=== PATIENT | female | born 1950 | race Caucasian/White ===

== ENCOUNTER 2016-12-15 20:12 | Observation (INO) | payer MEDICARE, OTHER ==
[~2016-12-15] VITALS: Ht 162.6 cm; Wt 86.7 kg
[~2016-12-15 20:12] MED LIST: ASPI81 PO; CORE12.5 PO; DICY1TAB26 PO; FENO145T2 PO; IBUP100S PO; LORA-474 PO; MELA3TAB PO; MORP25IN2 INTRA1; NEXI40CA PO; NORV10TA PO; OXYC-103 PO; OXYM30TA4 PO; PRAV40TA2 PO; PROBCAP4 PO; PROC1TAB8 PO; SYNT112T PO; TRAZ100 PO; VALA500 PO; VITA5000 PO
[2016-12-15 20:14] VITALS: BP 169/81; PULSE 85; RESP 19; TEMP 98.2; O2SAT 99
[2016-12-15] MEDS ORDERED: ONDANSETRON HCL 4 MG/2 ML VIAL IV PUSH ONE (20:45)
[2016-12-15] MEDS ORDERED: NITROGLYCERIN 2% OINT 1 GM PACKET TOP ONE (20:45)
[2016-12-15] MEDS ORDERED: SODIUM CHLORIDE 0.9% FLUSH 10 ML FLUSH IVF PRN (20:45)
[2016-12-15] MEDS ORDERED: ASPIRIN 325 MG TAB PO ONE (20:45)
[2016-12-15] MEDS ORDERED: MORPHINE SULFATE 4 MG/ML INJ IV PUSH ONE (20:45)
[2016-12-15 20:49] VITALS: O2SAT 97
[2016-12-15 20:49] LABS: AUTOMATED NEUTROPHIL # 2.9 TH/MM3 (1.8-7.7); BASOPHIL % 0.7 % (0.0-2.0); EOSINOPHIL # 0.1 TH/MM3 (0-0.4); EOSINOPHIL % 1.9 % (0.0-4.0); HEMATOCRIT 36.8 % (35.0-46.0); HEMO FLAGS DIFF FINAL; LYMPH % 45.2 % (9.0-44.0); MEAN CELL VOLUME 92.4 FL (80.0-100.0); MEAN CORPUSCULAR HEMOGLOBIN 31.1 PG (27.0-34.0); MEAN CORPUSCULAR HGB CONC 33.7 % (32.0-36.0); MONO % 7.8 % (0.0-8.0); NEUT % 44.4 % (16.0-70.0); PLATELET COUNT 441 TH/MM3 (150-450); RED BLOOD COUNT 3.98 MIL/MM3 (4.00-5.30); RED CELL DISTRIBUTION WIDTH 13.1 % (11.6-17.2); WHITE BLOOD COUNT 6.6 TH/MM3 (4.0-11.0)
[2016-12-15 20:50] VITALS: BP 156/77; PULSE 81; RESP 18; O2SAT 97
[2016-12-15 21:05] VITALS: O2SAT 95
[2016-12-15 21:10] LABS: APTT (PATIENT) 25.9 SEC (24.3-30.1); PROTHROMBIN TIME - PATIENT 10.9 SEC (9.8-11.6)
--- NOTE | 2016-12-15 21:13 | RADRPT ---
EXAM DATE/TIME: 12/15/2016 20:51 [place] COMPARISON: No previous studies available for comparison. INDICATIONS : Chest pain that started today. MEDICAL HISTORY : Hypertension. SURGICAL HISTORY : None. ENCOUNTER: Initial ACUITY: 1 day PAIN SCORE: 5/10 LOCATION: Bilateral chest FINDINGS: A single view of the chest demonstrates the lungs to be symmetrically aerated without evidence of mas s, infiltrate or effusion. The cardiomediastinal contours are unremarkable. Osseous structures are intact. CONCLUSION: Normal examination for a patient of this age. Augusto Figueroa MD on December 15, 2016 at 21:12 Board Certified Radiologist. This report was verified electronically.
[2016-12-15 21:18] LABS: ANION GAP 7 MEQ/L (5-15); AST (GOT) 20 U/L (15-37); BLOOD UREA NITROGEN 14 MG/DL (7-18); CHLORIDE 104 MEQ/L (98-107); GLOMERULAR FILTRATION RATE 71 ML/MIN (>89); POTASSIUM 3.8 MEQ/L (3.5-5.1); SODIUM (NA) 139 MEQ/L (136-145)
[2016-12-15 21:22] LABS: ALKALINE PHOSPHATASE 58 U/L (45-117); ALT (GPT) 27 U/L (10-53); TOTAL BILIRUBIN ADULT 0.1 MG/DL (0.2-1.0)
[2016-12-15 21:23] LABS: CREATINE KINASE 80 U/L (26-192)
--- NOTE | 2016-12-15 21:57 | PD ---
HPI Chief Complaint: Chest Pain Time Seen by Provider: 20:19 Travel History International Travel<30 days: No Contact w/Intl Traveler<30days: No Traveled to known affect area: No History of Present Illness HPI 66-year-old female arrives to the ER complaining of palpitations. The onset occurred while watching TV. There was pain in the chest left jaw left upper extremity. At the time the palpitations started the severity was mild. She states the severity is mild in the ER now. The , Dr. Burrows, checked her radial pulse and observed an irregular rhythm. They therefore came here for evaluation. At the time of onset the patient had mild shortness of breath. Patient reports in 2006 cardiac catheterization revealed a 50% occlusion affecting unknown artery. They followed with Dr Calderon. She has hypertension and hyperlipidemia. There is no family history of coronary artery disease. The patient does not smoke. She reports she has been having palpitations nightly for months, which she has yet to disclose. There has been no recent change in medicine. She spent the day doing laundry and relaxing in a recliner. PFSH Past Medical History Hx Anticoagulant Therapy: Yes (81 MG ASA DAILY) Arthritis: No Asthma: No Autoimmune Disease: No Anxiety: Yes Depression: Yes Heart Rhythm Problems: No Cancer: Yes (BCC FOREHEAD) Cardiac Catheterization: Yes (01/24/07) Cardiovascular Problems: Yes (HTN ) High Cholesterol: Yes Chest Pain: Yes Congestive Heart Failure: No COPD: No Cerebrovascular Accident: No Coronary Artery Disease: Yes Diabetes: No Diminished Hearing: No Gastrointestinal Disorders: Yes GERD: Yes Glaucoma: No Headaches: Yes Hepatitis: Yes (HEP-B 1970) Hiatal Hernia: No Hypertension: Yes Implanted Vascular Access Dvce: Yes (MORPHINE PUMP FOR CHRONIC BACK PAIN) Kidney Stones: No Musculoskeletal: Yes Neurologic: Yes (neuropathy) Psychiatric: Yes Reproductive: No Respiratory: No Myocardial Infarction: No Radiation Therapy: No Renal Failure: No Seizures: No Sleep Apnea: No Thyroid Disease: Yes Triglycerides - High: Yes Ulcer: No Tetanus Vaccination: < 5 Years ?: Not Menopausal: Yes Tubal Ligation: Yes Past Surgical History Abdominal Surgery: Yes (cholecystectomy, APENDECTOMY) AICD: No Body Medical Devices: PAIN PUMP Cardiac Surgery: No Cholecystectomy: Yes Ear Surgery: No Endocrine Surgery: No Eye Surgery: No Genitourinary Surgery: Yes Gynecologic Surgery: Yes (L oopherectomy, HYSTERECTOMY, TUBAL LIGATION ) Hysterectomy: Yes Joint Replacement: No Neurologic Surgery: Yes Oral Surgery: Yes (TONSILS) Pacemaker: No Thoracic Surgery: Yes Tonsillectomy: Yes Other Surgery: Yes Social History Alcohol Use: No Tobacco Use: No Substance Use: No Allergies-Medications (Allergen,Severity, Reaction): Coded Allergies: Sulfa (Verified Allergy, Mild, hIVES, 12/15/16) *MDRO Multi-Drug Resistant Organism (Verified Allergy, Unknown, 12/15/16) C- diff 06/2013 Darvon (Verified Adverse Reaction, Mild, NAUSEA & VOMITING, 12/15/16) Talwin (Verified Adverse Reaction, Mild, HALLUCINATIONS, 12/15/16) Reported Meds & Prescriptions Reported Meds & Active Scripts Active Reported Opana Er (Crush Resistant (Oxymorphone Hcl) 30 Mg Tab 30 Mg PO Q12HR Probiotic Acidophilus (Acidophilus) Cap 1 Tab PO DAILY Motrin (Ibuprofen) 100 Mg/5 Ml Susp 200 Mg PO DAILY Pravastatin Sodium 40 Mg Tab 1 Tab PO DAILY Melatonin 3 Mg Tab 3 Tab PO HS Trazodone Hcl (Trazodone HCl) 100 Mg Tab 200 Mg PO HS Compazine 10 Mg Tab (Prochlorperazine Maleate) 10 Mg Tab 10 Mg PO DAILY PRN Vitamin D-3 (Cholecalciferol) 5,000 Unit Tab 5,000 Unit PO DAILY Fenofibrate 145 Mg Tab 134 Mg PO DAILY Bentyl (Dicyclomine HCl) 20 Mg Tab 20 Mg PO QID PRN Synthroid (Levothyroxine Sodium) 112 Mcg Tab 112 Mcg PO DAILY Morphine Sulfate 25 Mg/Ml Inj 25 Mg INTRA1 DAILY Norvasc (Amlodipine Besylate) 10 Mg Tab 10 Mg PO DAILY Coreg (Carvedilol) 12.5 Mg Tab 12.5 Mg PO BID OxyCONTIN ER (Oxycodone HCl) 10 Mg Tabcr 30 Mg PO QID Valtrex (Valacyclovir HCl) 500 Mg Tab 500 Mg PO BID Aspirin 81 Mg Tab 81 Mg PO DAILY Ativan (Lorazepam) 1 Mg Tab 1 Mg PO BIDPRN Nexium (Esomeprazole Magnesium) 40 Mg Cap 40 Mg PO DAILY Review of Systems Except as stated in HPI: all other systems reviewed are Neg General / Constitutional: No: Fever Cardiovascular: Positive: Chest Pain or Discomfort, Palpitations, Irregular Rhythm, No: Diaphoresis Respiratory: Positive: Shortness of Breath Physical Exam Narrative GENERAL: 66-year-old female pleasant no acute distress speaking full sentences SKIN: Warm and dry. HEAD: Atraumatic. Normocephalic. EYES: Pupils equal and round. No scleral icterus. No injection or drainage. ENT: No nasal bleeding or discharge. Mucous membranes pink and moist. NECK: Trachea midline. No JVD. CARDIOVASCULAR: Regular rate and rhythm. No murmur appreciated. Well-perfused. RESPIRATORY: No accessory muscle use. Clear to auscultation. Breath sounds equal bilaterally. GASTROINTESTINAL: Abdomen soft, non-tender, nondistended. Hepatic and splenic margins not palpable. MUSCULOSKELETAL: No obvious deformities. No clubbing. No cyanosis. No edema. NEUROLOGICAL: Awake and alert. No obvious cranial nerve deficits. Motor grossly within normal limits. Normal speech. PSYCHIATRIC: Pleasant. Appropriate mood and affect. Data Data Last Documented VS Vital Signs Date Time Temp Pulse Resp B/P Pulse Ox O2 Delivery O2 Flow Rate FiO2 12/15/16 21:05 98 Nasal Cannula 2 12/15/16 20:50 81 18 156/77 12/15/16 20:14 98.2 Vital signs reviewed Orders Electrocardiogram (12/15/16 ) Ckmb (Isoenzyme) Profile (12/15/16 20:31) Complete Blood Count With Diff (12/15/16 20:31) Comprehensive Metabolic Panel (12/15/16 20:31) Magnesium (Mg) (12/15/16 20:31) Prothrombin Time / Inr (Pt) (12/15/16 20:31) Act Partial Throm Time (Ptt) (12/15/16 20:31) Troponin I (12/15/16 20:31) Chest, Single Ap (12/15/16 20:31) Ecg Monitoring (12/15/16 20:31) Iv Access Insert/Monitor (12/15/16 20:31) Oximetry (12/15/16 20:31) Oxygen Administration (12/15/16 20:31) Aspirin (Aspirin) (12/15/16 20:45) Nitroglycerin 2% Oint (Nitroglycerin 2% (12/15/16 20:45) Sodium Chloride 0.9% Flush (Ns Flush) (12/15/16 20:45) Ondansetron Inj (Zofran Inj) (12/15/16 20:45) Morphine Inj (Morphine Inj) (12/15/16 20:45) Admit Order (Ed Use Only) (12/15/16 22:14) Labs Laboratory Tests Test 12/15/16 20:35 White Blood Count 6.6 TH/MM3 Red Blood Count 3.98 MIL/MM3 Hemoglobin 12.4 GM/DL Hematocrit 36.8 % Mean Corpuscular Volume 92.4 FL Mean Corpuscular Hemoglobin 31.1 PG Mean Corpuscular Hemoglobin 33.7 % Concent Red Cell Distribution Width 13.1 % Platelet Count 441 TH/MM3 Mean Platelet Volume 7.7 FL Neutrophils (%) (Auto) 44.4 % Lymphocytes (%) (Auto) 45.2 % Monocytes (%) (Auto) 7.8 % Eosinophils (%) (Auto) 1.9 % Basophils (%) (Auto) 0.7 % Neutrophils # (Auto) 2.9 TH/MM3 Lymphocytes # (Auto) 3.0 TH/MM3 Monocytes # (Auto) 0.5 TH/MM3 Eosinophils # (Auto) 0.1 TH/MM3 Basophils # (Auto) 0.0 TH/MM3 CBC Comment DIFF FINAL Differential Comment Prothrombin Time 10.9 SEC Prothromb Time International 1.0 RATIO Ratio Activated Partial 25.9 SEC Thromboplast Time Sodium Level 139 MEQ/L Potassium Level 3.8 MEQ/L Chloride Level 104 MEQ/L Carbon Dioxide Level 28.0 MEQ/L Anion Gap 7 MEQ/L Blood Urea Nitrogen 14 MG/DL Creatinine 0.81 MG/DL Estimat Glomerular Filtration 71 ML/MIN Rate Random Glucose 109 MG/DL Calcium Level 8.9 MG/DL Magnesium Level 2.0 MG/DL Total Bilirubin 0.1 MG/DL Aspartate Amino Transf 20 U/L (AST/SGOT) Alanine Aminotransferase 27 U/L (ALT/SGPT) Alkaline Phosphatase 58 U/L Total Creatine Kinase 80 U/L Troponin I LESS THAN 0.02 NG/ML Total Protein 7.0 GM/DL Albumin 3.6 GM/DL [facility] Medical Decision Making Medical Screen Exam Complete: Yes Emergency Medical Condition: Yes Medical Record Reviewed: Yes Differential Diagnosis NSTEMI, unstable angina, coronary vasospasm, PE, PTX, aortic dissection, pericarditis, myocarditis, endocarditis, PNA, esophageal disease, aneurysm, musculoskeletal etiologies, anxiety, cocaine/sympathomimetic abuse Narrative Course CBC & BMP Diagram 12/15/16 20:35 Troponin is less than 0.02 EKG reveals sinus rhythm at 95 bpm with normal axis and intervals LFTs are normal Last 24 hours Impressions Chest X-Ray 12/15/162030 Signed Impressions: Service Date/Time: Thursday, December 15, 2016 20:51 - CONCLUSION: Normal examination for a patient of this age. Augusto Figueroa MD Admission for serial enzymes and evaluation by Dr. Calderon will be arranged. Patient has received morphine, Zofran, nitroglycerin paste and aspirin Diagnosis Primary Impression: Chest pain Qualified Code: R07.9 - Chest pain, unspecified type Additional Impression: Arrhythmia Qualified Code: I49.9 - Cardiac arrhythmia, unspecified cardiac arrhythmia type Admitting Information Admitting Physician Requests: Observation De Sanchez MD Dec 15, 2016 21:57
[2016-12-15] MEDS ORDERED: SODIUM CHLOR 0.9% 1000 ML INJ 1,000 ML IV SCH (22:19)
[2016-12-15] MEDS ORDERED: ONDANSETRON HCL 4 MG/2 ML VIAL IVP PRN (22:30)
[2016-12-15] MEDS ORDERED: ACETAMINOPHEN/HYDROcodone 325 MG/5 MG TAB PO PRN (22:30)
[2016-12-15] MEDS ORDERED: MORPHINE SULFATE 4 MG/ML INJ IV PRN (22:30)
[2016-12-15] MEDS ORDERED: SODIUM CHLORIDE 0.9% FLUSH 10 ML FLUSH IV FLUSH PRN (22:30)
[2016-12-15] MEDS ORDERED: BISACODYL 10 MG SUPP PR PRN (22:30)
[2016-12-15] MEDS ORDERED: ACETAMINOPHEN 325 MG TAB PO PRN (22:30)
--- NOTE | 2016-12-15 22:30 | HHI.HP ---
HPI Service [facility] Primary Care Physician Non-Staff Admission Diagnosis Chest Pain, Palpitations Diagnoses: (1) Chest pain Diagnosis: Principal (2) Palpitations Diagnosis: Principal (3) Dehydration Diagnosis: Principal (4) HTN (hypertension) Diagnosis: Principal Travel History International Travel<30 Days: No Contact w/Intl Traveler <30 Da: No Traveled to Known Affected Are: No History of Present Illness This is a 66-year-old female with a PMH of Anxiety, Depression, Chronic Pain s/ p Morphine Pump, Hepatitis B and CAD who presented to the ER at the insistence of her , Dr. Burrows w/ Psychiatry, for further evaluation of complaints of chest pain and palpitations. Per pt, she has been having intermittent chest pain x2-3 months, however has not sought medical attention. Today, pt w/ acute onset of chest pain while sitting in recliner w/ radiation to left neck/jaw. Dr. Burrows states he took her pulse and was noted to be thready w/ occasional PVCs. S/p NTG w/ no significant response, s/p Morphine w / relief. Following w/ Dr. Calderon as outpatient, s/p Cardiac Cath 01/24/07 w/ 50 % LAD stenosis, s/p angio-seal and plan for medical management. No further intervention since that time. On arrival, BP 169/81, HR 85, O2 sat 99% on RA, Afebrile. CBC unremarkable. GFR 71. Troponin negative. EKG with no acute ischemia. CXR with no acute findings. Review of Systems Except as stated in HPI: all other systems reviewed are Neg ROS: 14 point review of systems otherwise negative. Past Family Social History Past Medical History PMH: Anxiety, Depression, Chronic Pain s/p Morphine Pump, Hepatitis B and CAD Past Surgical History PAST SURGICAL HISTORY: Cholecystectomy, Appendectomy, Morphine Pain Pump ( [employer]), Hysterectomy, Tonsillectomy Allergies: Coded Allergies: Sulfa (Verified Allergy, Mild, hIVES, 12/15/16) *MDRO Multi-Drug Resistant Organism (Verified Allergy, Unknown, 12/15/16) C- diff 06/2013 Ruth Ann (Verified Adverse Reaction, Mild, NAUSEA & VOMITING, 12/15/16) Elias (Verified Adverse Reaction, Mild, HALLUCINATIONS, 12/15/16) Family History PAST FAMILY HISTORY: Reviewed. No h/o DM or CAD Social History PAST SOCIAL HISTORY: Negative for alcohol, tobacco or drugs. 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 Physical Exam Vital Signs Vital Signs Date Time Temp Pulse Resp B/P Pulse Ox O2 Delivery O2 Flow Rate FiO2 12/15/16 21:05 98 Nasal Cannula 2 12/15/16 21:05 95 Room Air 12/15/16 20:50 81 18 156/77 97 Room Air 12/15/16 20:49 97 12/15/16 20:20 85 17 98 Room Air 12/15/16 20:14 98.2 85 19 169/81 99 Physical Exam PE: GENERAL: Extremely pleasant middle-aged white female in no acute distress. at bedside HEENT: PERRLA, EOMI. No scleral icterus or conjunctival pallor. No lid lag or facial droop. CARDIOVASCULAR: Regular rate and rhythm. No obvious murmurs to auscultation. No chest tenderness to palpation. RESPIRATORY: No obvious rhonchi or wheezing. Clear to auscultation. Breath sounds equal bilaterally. GASTROINTESTINAL: Abdomen soft, non-tender, nondistended. BS normal. MUSCULOSKELETAL: Extremities without clubbing, cyanosis, or edema. No obvious deformities. NEUROLOGICAL: Awake, alert and oriented x4. No focal neurologic deficits. Moving both upper and lower extremities spontaneously. Laboratory Laboratory Tests Test 12/15/16 20:35 White Blood Count 6.6 Red Blood Count 3.98 Hemoglobin 12.4 Hematocrit 36.8 Mean Corpuscular Volume 92.4 Mean Corpuscular Hemoglobin 31.1 Mean Corpuscular Hemoglobin 33.7 Concent Red Cell Distribution Width 13.1 Platelet Count 441 Mean Platelet Volume 7.7 Neutrophils (%) (Auto) 44.4 Lymphocytes (%) (Auto) 45.2 Monocytes (%) (Auto) 7.8 Eosinophils (%) (Auto) 1.9 Basophils (%) (Auto) 0.7 Neutrophils # (Auto) 2.9 Lymphocytes # (Auto) 3.0 Monocytes # (Auto) 0.5 Eosinophils # (Auto) 0.1 Basophils # (Auto) 0.0 CBC Comment DIFF FINAL Differential Comment Prothrombin Time 10.9 Prothromb Time International 1.0 Ratio Activated Partial 25.9 Thromboplast Time Sodium Level 139 Potassium Level 3.8 Chloride Level 104 Carbon Dioxide Level 28.0 Anion Gap 7 Blood Urea Nitrogen 14 Creatinine 0.81 Estimat Glomerular Filtration 71 Rate Random Glucose 109 Calcium Level 8.9 Magnesium Level 2.0 Total Bilirubin 0.1 Aspartate Amino Transf 20 (AST/SGOT) Alanine Aminotransferase 27 (ALT/SGPT) Alkaline Phosphatase 58 Total Creatine Kinase 80 Troponin I LESS THAN 0.02 Total Protein 7.0 Albumin 3.6 Result Diagram: 12/15/16203412/15/162034 Assessment and Plan Problem List: (1) Chest pain ICD Code: R07.9 Status: Acute (2) Palpitations ICD Code: R00.2 Status: Acute (3) Dehydration ICD Code: E86.0 Status: Acute (4) HTN (hypertension) ICD Code: I10 Status: Acute Assessment and Plan A/P: 1. Chest Pain: Atypical. Intermittent chest pain x2-3 months, now w/ radiation to jaw/neck, minimal relief w/ NTG. Initial trop negative, EKG w/ no acute ischemia. Admit for Observation, place on telemetry, check serial cardiac enzymes, ASA, Statin, B-Brian. Following w/ Dr. Calderon as outpatient , h/o Cardiac Cath 2007 w/ 50% LAD stenosis, s/p angio-seal and medical management. NTG/Morphine as needed. 2. Palpitations: Telemetry. K+ and Mg normal, will repeat labs in am. Check Echo, check TSH. Cardiology Consult for further eval. 3. Dehydration: GFR 71, BUN/Creatinine normal, IVF for hydration, repeat labs in am. 4. HTN: BP 150-160's while in ER, resume home medications, monitor BP. 5. DVT Prophylaxis: SCD/Teds. 6. Social work for d/c planning as needed. 7. Case discussed w/ ER physician at length. Problem Qualifiers (1) Chest pain: Qualified Code: R07.9 - Chest pain, unspecified type Alexandra Guerra MD Dec 15, 2016 22:30
[2016-12-15] MEDS: PRAVASTATIN SOD 40 MG TAB PO SCH (23:21)
[2016-12-15 23:41] VITALS: BP 150/70; PULSE 79; RESP 18; TEMP 97.8; O2SAT 98
[2016-12-16] VITALS: PULSE 83
[2016-12-16] MEDS: MORPHINE SULFATE 4 MG/ML INJ IV PRN ×3 (03:00→15:59)
[2016-12-16 07:51] VITALS: BP 154/88; PULSE 88; RESP 18; O2SAT 95
[2016-12-16 08:00] VITALS: PULSE 72
[2016-12-16] MEDS: ASPIRIN EC 81 MG TABEC PO SCH (08:03)
[2016-12-16] MEDS: CARVEDILOL 12.5 MG TAB PO SCH ×2 (08:04→21:37)
--- NOTE | 2016-12-16 08:13 | HHI.PR ---
Subjective Remarks Follow up for chest pain and palpitations. The patient reports just minimal chest pain overnight, now went away this morning. Chest pain located at left anterior chest with radiation into the neck and left shoulder, associated with palpitations and some nausea but no SOB or diaphoresis. She feels much better today. No other medical complaints at this time. She is asking to go home today. Awaiting cardiology evaluation. Objective Vitals Vital Signs Date Time Temp Pulse Resp B/P Pulse Ox O2 Delivery O2 Flow Rate FiO2 12/16/16 07:51 88 18 154/88 95 12/16/16 00:00 83 12/15/16 23:41 97.8 79 18 150/70 98 12/15/16 21:05 98 Nasal Cannula 2 12/15/16 21:05 95 Room Air 12/15/16 20:50 81 18 156/77 97 Room Air 12/15/16 20:49 97 12/15/16 20:20 85 17 98 Room Air 12/15/16 20:14 98.2 85 19 169/81 99 Result Diagram: 12/15/16203412/15/162034 Imaging Last Impressions Chest X-Ray 12/15/162030 Signed Impressions: Service Date/Time: Thursday, December 15, 2016 20:51 - CONCLUSION: Normal examination for a patient of this age. Augusto Figueroa MD Objective Remarks GENERAL: Well-nourished, well-developed female patient in [facility]. SKIN: Warm and dry. No rash. HEAD: Normocephalic. Atraumatic. EYES: Pupils equal and round. No scleral icterus. No injection or drainage. ENT: No nasal bleeding or discharge. Mucous membranes pink and moist. NECK: Supple. Trachea midline. CARDIOVASCULAR: Regular rate and rhythm. S1, S2 noted. No murmur appreciated. RESPIRATORY: No accessory muscle use. Clear to auscultation. Breath sounds equal bilaterally. GASTROINTESTINAL: Abdomen soft, non-tender, nondistended. Normoactive bowel sounds x4. MUSCULOSKELETAL: No obvious deformities. Extremities without clubbing, cyanosis , or edema. NEUROLOGICAL: Awake and alert. No obvious cranial nerve deficits. Motor grossly within normal limits. 5/5 muscle strength in bilateral upper and lower extremities. Normal speech. PSYCHIATRIC: Appropriate mood and affect; insight and judgment normal. Medications and IVs Current Medications Medications (Trade) Dose Ordered Sig/Heydi Route Start Time Stop Time Status Last Admin (NS 1000 ml Inj) 1,000 ml @ 100 mls/hr Q10H IV 12/15/16 22:19 12/15/16 23:21 (NS Flush) 2 ml UNSCH PRN IV FLUSH 12/15/16 22:30 (NS Flush) 2 ml BID IV FLUSH 12/16/16 09:00 (Zofran Inj) 4 mg Q6H PRN IVP 12/15/16 22:30 (Dulcolax Supp) 10 mg DAILY PRN UT 12/15/16 22:30 (Tylenol) 650 mg Q6H PRN PO 12/15/16 22:30 (Ecotrin Ec) 81 mg DAILY PO 12/16/16 09:00 12/16/16 08:03 (Coreg) 12.5 mg BID PO 12/16/16 09:00 12/16/16 08:04 (Norvasc) 10 mg DAILY PO 12/16/16 09:00 12/16/16 08:04 (Pravachol) 40 mg DAILY PO 12/16/16 09:00 12/15/16 23:21 (Opana Er) 30 mg Q12HR PO 12/16/16 09:00 (OxyCONTIN CR) 30 mg Q4H PO 12/16/16 09:00 (Morphine Inj) 4 mg Q3H PRN IV 12/16/16 01:30 12/16/16 08:05 (Pneumovax-23 Inj) 25 mcg ONCE ONCE IM 12/17/16 10:00 12/17/16 10:01 (Flu (Quadrivalent) Vaccine Inj) 0.5 ml ONCE ONCE IM 12/17/16 10:00 12/17/16 10:01 Urinary Catheter: No Vascular Central Line Catheter: No A/P Problem List: (1) Chest pain ICD Code: R07.9 Status: Acute (2) Palpitations ICD Code: R00.2 Status: Acute (3) Dehydration ICD Code: E86.0 Status: Acute (4) HTN (hypertension) ICD Code: I10 Status: Acute Assessment and Plan 66-year-old female with a PMH of Anxiety, Depression, Chronic Pain s/p Morphine Pump, Hepatitis B and CAD who presented to the ER at the insistence of her , Dr. Burrows w/ Psychiatry, for further evaluation of complaints of chest pain and palpitations. Following w/ Dr. Caldreon as outpatient, s/p Cardiac Cath 01/24/07 w/ 50% LAD stenosis, s/p angio-seal and plan for medical management. Chest Pain: Atypical. Intermittent chest pain x2-3 months, now w/ radiation to jaw/neck, minimal relief w/ NTG. ACS ruled out with negative serial cardiac enzymes x3 and EKG w/ no acute ischemia. Monitor on telemetry, no events recorded. Continue ASA, Statin, B-Brian. Consult patient's caponizer Dr. Calderon. NTG/Morphine as needed. Currently chest pain free. Palpitations: No events seen on telemetry, continue to monitor. K+ and Mg normal, will repeat labs in am. Check Echo. TSH wnl. Cardiology Consult for further eval. Dehydration: GFR 71, BUN/Creatinine normal, IVF for hydration, repeat labs with mild improvement. HTN: BP 150-160's while in ER, resume home medications, monitor BP. DVT Prophylaxis: SCD/Teds. Written by Noelle Sy, acting as scribe for Dr. George on 12/16/16 at 09:08 All or portions of this note were transcribed by scribe Noelle Sy. I, Dr. Katalina George personally performed the history, physical exam, and medical decision making; and confirmed the accuracy of the information in the transcribed note. Authenticated by Dr. Katalina George on 12/16/16 at 09:08 Problem Qualifiers (1) Chest pain: Qualified Code: R07.9 - Chest pain, unspecified type oNelle Sy PA-C Dec 16, 2016 08:13 Katalina George MD Dec 16, 2016 14:41
[2016-12-16 08:58] LABS: BASOPHIL # 0.1 TH/MM3 (0-0.2); BASOPHIL % 0.9 % (0.0-2.0); EOSINOPHIL # 0.1 TH/MM3 (0-0.4); EOSINOPHIL % 2.3 % (0.0-4.0); HEMATOCRIT 35.7 % (35.0-46.0); HEMO FLAGS DIFF FINAL; LYMPH % 40.7 % (9.0-44.0); LYMPHOCYTE # 2.6 TH/MM3 (1.0-4.8); MEAN CELL VOLUME 92.6 FL (80.0-100.0); MEAN CORPUSCULAR HEMOGLOBIN 30.7 PG (27.0-34.0); MEAN CORPUSCULAR HGB CONC 33.1 % (32.0-36.0); MONO % 8.9 % (0.0-8.0); NEUT % 47.2 % (16.0-70.0); PLATELET COUNT 377 TH/MM3 (150-450); RED BLOOD COUNT 3.86 MIL/MM3 (4.00-5.30); RED CELL DISTRIBUTION WIDTH 13.1 % (11.6-17.2); WHITE BLOOD COUNT 6.3 TH/MM3 (4.0-11.0)
[2016-12-16] MEDS ORDERED: oxyCODONE HCL 10 MG CONTROLLED RELEASE TAB PO SCH (09:00)
[2016-12-16] MEDS: SODIUM CHLORIDE 0.9% FLUSH 10 ML FLUSH IV FLUSH SCH (09:00)
[2016-12-16 09:39] LABS: ALKALINE PHOSPHATASE 57 U/L (45-117); ALT (GPT) 25 U/L (10-53); ANION GAP 8 MEQ/L (5-15); AST (GOT) 24 U/L (15-37); BICARBONATE 25.4 MEQ/L (21.0-32.0); BLOOD UREA NITROGEN 12 MG/DL (7-18); CHLORIDE 103 MEQ/L (98-107); GLOMERULAR FILTRATION RATE 84 ML/MIN (>89); HDL CHOLESTEROL 63.1 MG/DL (40.0-60.0); SODIUM (NA) 136 MEQ/L (136-145); TOTAL BILIRUBIN ADULT 0.3 MG/DL (0.2-1.0)
[2016-12-16 09:40] LABS: LDL CHOLESTEROL 44 MG/DL (0-99)
[2016-12-16] MEDS: oxyCODONE HCL 10 MG CONTROLLED RELEASE TAB PO SCH ×4 (10:02→21:37)
[2016-12-16] MEDS: OXYMORPHONE 10 MG E.R. TAB PO SCH ×2 (10:03→21:36)
[2016-12-16 14:33] LABS: HEMOGLOBIN A1b 0.7 %; HEMOGLOBIN Ao 86.5 %; HEMOGLOBIN F 1.2 %; HEMOGLOBIN LA1C 1.8 %; HEMOGLOBIN P3 3.4 %
--- NOTE | 2016-12-16 15:01 | EKG ---
Date Performed: 12/15/2016 Time Performed: 20:16:10 PTAGE: 66 years EKG: Sinus rhythm ST changes have resolved from the prior tracing NORMAL ECG PREVIOUS TRACING : 06/24/2012 15.59 DOCTOR: Amarjit Valadez Interpretating Date/Time 12/16/2016 14:59:43
[2016-12-16] MEDS ORDERED: HYDROmorphone HCL PF 1 MG/ML VIAL IV PUSH ONE (16:45)
[2016-12-16 17:28] LABS: BLOOD, URINE NEG (NEG); GLUCOSE,URINE NEG (NEG); KETONE, URINE NEG (NEG); NITRITE,URINE NEG (NEG); PH, URINE 7.5 (5.0-8.5); URINE COLOR COLORLESS (YELLW/STRAW)
[2016-12-16 17:30] LABS: COMMENT (UR) CULT NOT INDICATED; CULTURE IF INDICATED CULT NOT INDICATED
[2016-12-16 17:35] VITALS: BP 136/85; PULSE 78; RESP 18; TEMP 97.6; O2SAT 95
--- NOTE | 2016-12-16 17:49 | MB ---
cc: LAURA CALDERON M.D., OTAKAR MD DATE OF CONSULTATION: 12/16/2016. HISTORY OF PRESENT ILLNESS: Ms. Burrows is a 66-year-old white female who was admitted with intermittent chest pain radiating into the left neck and jaw associated with palpitations. Her , Dr. Burrows, brought her to the emergency room. She still has occasional episodes of chest discomfort and mild palpitations. She has a history of coronary artery disease with 50% left anterior descending stenosis on cardiac catheterization in 2006. PAST MEDICAL HISTORY: Her past medical history is positive for: 1. Anxiety. 2. Depression. 3. Chronic back pain. Five back surgeries. 4. Morphine pump. 5. Hepatitis B. 6. Coronary artery disease as above. 7. History of cholecystectomy. 8. Appendectomy. 9. Hysterectomy. 10. Tonsillectomy. MEDICATIONS: Her medications include: 1. Aspirin. 2. Carvedilol 12.5 milligrams twice a day. 3. Amlodipine 10 milligrams a day. 4. Pravastatin 40 milligrams a day. 5. Oxymorphone. 6. Oxycodone. ALLERGIES: 1. SULFA. 2. DARVON. 3. TALWIN. SOCIAL HISTORY: The patient does not smoke. She does not drink alcohol. 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 FAMILY HISTORY: Family history is negative for heart disease. REVIEW OF SYSTEMS: The review of systems is otherwise negative. PHYSICAL EXAMINATION: VITAL SIGNS: Blood pressure is 154/88, pulse 72 and regular. HEAD, EYES, EARS, NOSE, THROAT: Negative. NECK: 2+ carotid upstrokes, no bruits. LUNGS: Clear. HEART: Regular with no murmurs, rubs or gallops. ABDOMEN: Abdomen soft. No bruits. EXTREMITIES: With trace edema. 2+ distal pulses. NEUROLOGIC: Grossly nonfocal. EKGS: EKG was reviewed and showed normal sinus rhythm with normal axis and intervals. LABS: Hemoglobin 11.8. Potassium 4.0. Creatinine 0.7. Troponin negative x3. AST and ALT normal. LDL 44. HDL 63. DIAGNOSIS: 1. Angina. 2. Coronary artery disease. 3. Palpitations. 4. Hypertension. 5. Dehydration. 6. Chronic back pain. 7. Anxiety and depression. DISPOSITION: 1. Ms. Burrows will be monitored on telemetry. 2. We will continue her current medical program including aspirin, statin and beta arlene. 3. She has been ruled out for myocardial infarction by enzymes. 4. Her telemetry has shown no significant arrhythmias. 5. We will continue to titrate her blood pressure medications. 6. Dr. Calderon, her primary police liaison officer, will see her tomorrow morning. The plan was discussed with the patient and her , Dr. Burrows. MD WYATT Anderson/MARILOU /4:42 PM /5:40 PM MTDD
--- NOTE | 2016-12-16 19:02 | EC ---
Study Study Date:12/16/2016 STUDY CONCLUSIONS SUMMARY - Left ventricle: The cavity size was at the upper limits of normal. Wall thickness was normal. Systolic function was normal. The estimated ejection fraction was 60%. Wall motion was normal; there were no regional wall motion abnormalities. - Left atrium: The atrium was mildly dilated. - Tricuspid valve: Mild regurgitation. - Pulmonary arteries: PA peak pressure: 39mm Hg (S). If LV function is below 40, please consider prescribing an ACEI or ARB or document rationale for non-use. PROCEDURE DATA STUDY STATUS: Elective. Procedure: Transthoracic echocardiography. Image quality was good. Scanning was performed from the parasternal, apical, and subcostal acoustic windows. Study completion: The patient tolerated the procedure well. Transthoracic echocardiography. M-mode, complete 2D, complete spectral Doppler, and color Doppler. Height: Height: 64in. Weight: Weight: 175.6lb. Body mass index: BMI: 30.2kg/m^2. Body surface area: BSA: 1.85m^2. Patient status: Inpatient. CARDIAC ANATOMY LEFT VENTRICLE: The cavity size was at the upper limits of normal. Wall thickness was normal. Systolic function was normal. The estimated ejection fraction was 60%. Wall motion was normal; there were no regional wall motion abnormalities. AORTIC VALVE: Trileaflet; normal thickness leaflets. Doppler: Transvalvular velocity was within the normal range. There was no stenosis. No regurgitation. Valve area: 2.06cm^2(VTI). Indexed valve area: 1.11cm^2/m^2 (VTI). Valve area: 1.66cm^2 (Vmax). Indexed valve area: 0.9cm^2/m^2 (Vmax). Mean gradient: 3mm Hg (S). AORTA: Aortic root: The aortic root was normal in size. MITRAL VALVE: Structurally normal valve. Doppler: Transvalvular velocity was within the normal range. There was no evidence for stenosis. Trace regurgitation. LEFT ATRIUM: The atrium was mildly dilated. RIGHT VENTRICLE: The cavity size was normal. Wall thickness was normal. PULMONIC VALVE: Doppler: Transvalvular velocity was within the normal range. There was no evidence for stenosis. No regurgitation. TRICUSPID VALVE: Structurally normal valve. Doppler: Transvalvular velocity was within the normal range. Mild regurgitation. PULMONARY ARTERY: The main pulmonary artery was normal-sized. Systolic pressure was at the upper limits of normal. RIGHT ATRIUM: The atrium was normal in size. PERICARDIUM: There was no pericardial effusion. SYSTEMIC VEINS: Inferior vena cava: The vessel was normal in size. Patient weight: 175.6lb _Ejection fraction:_ 65-75% _Fractional shortening:_ 32% up to 5Kg 5-11.5Kg 11.6-22.9Kg 23-45Kg 45-57Kg Aortic Root 7-13 <17 13-22 17-27 17-27 LA diam 6-13 <23 24-38 33-47 37-40 RVID 10-17 7-15 7-15 7-18 8-17 LVIDd 12-22 <32 24-38 33-47 37-40 LVPW 2-4 3-6 5-7 6-8 7-8 IVS 2-4 3-6 5-7 6-8 7-8 BASIC MEASUREMENTS ADULT NORMAL Left ventricle LV internal dimension, ED, chordal 51.2 mm 43-52 level, PLAX LV internal dimension, ES, chordal 38 mm 23-38 level, PLAX Fractional shortening, chordal level, *26 % >29 PLAX LV posterior wall thickness, ED 8.62 mm IVS/LVPW ratio, ED 1.01 <1.3 Ventricular septum Septal thickness, ED 8.7 mm Aortic valve Leaflet separation 21 mm 15-26 Aorta Root diameter, ED 33 mm Left atrium Anterior-posterior dimension 42 mm Anterior-posterior dimension index *2.27 cm/m^2 <2.2 BASIC MEASUREMENTS ADULT NORMAL Aortic valve Leaflet separation 21 mm 15-26 DOPPLER MEASUREMENTS ADULT NORMAL Main pulmonary artery Pressure, S *39 mm Hg =30 Aortic valve Peak velocity, S 121 cm/s Mean velocity, S 83.1 cm/s VTI, S 25.1 cm Mean gradient, S 3 mm Hg Valve area, VTI 2.06 cm^2 Valve area index, VTI 1.11 cm^2/m^2 Valve area, Vmax 1.66 cm^2 Valve area index, Vmax 0.9 cm^2/m^2 Mitral valve Peak E-wave velocity 69.1 cm/s Peak A-wave velocity 73.1 cm/s Deceleration time 229 ms 150-230 Peak E/A ratio 0.9 Tricuspid valve Regurgitant peak velocity 276 cm/s Peak RV-RA gradient, S 30 mm Hg Maximal regurgitant velocity 276 cm/s Systemic veins Estimated CVP 10 mm Hg Right ventricle RV pressure, S *40 mm Hg <30 Pulmonic valve Peak velocity, S 60.9 cm/s LEGEND: Mean values are shown as u=mean value. Asterisk (*) marie values outside specified normal range. Prepared and signed by Elizabeth Serrano [id number]
[2016-12-16 20:00] VITALS: PULSE 70
[2016-12-16] MEDS: HYDROmorphone HCL PF 1 MG/ML VIAL IV PUSH PRN (21:38)
[2016-12-17] VITALS (9 sets, daily range): BP systolic 116–154; BP diastolic 50–77; PULSE 66–81; RESP 16–21; TEMP 98–98.8; O2SAT 90–97
[2016-12-17] MEDS: HYDROmorphone HCL PF 1 MG/ML VIAL IV PUSH PRN ×2 (01:39→04:34)
[2016-12-17] MEDS: oxyCODONE HCL 10 MG CONTROLLED RELEASE TAB PO SCH ×6 (01:40→21:35)
[2016-12-17] MEDS: PRAVASTATIN SOD 40 MG TAB PO SCH (09:00)
[2016-12-17] MEDS: ASPIRIN EC 81 MG TABEC PO SCH (09:00)
[2016-12-17] MEDS: CARVEDILOL 12.5 MG TAB PO SCH ×2 (09:00→21:36)
--- NOTE | 2016-12-17 09:00 | HHI.PR ---
Subjective Remarks Follow up for chest pain, palpitations. The patient reports no further episodes of chest pain or palpitations overnight or today. She mostly complains of significant lower back pain and right groin pain, consistent with exacerbation of her chronic pain. She is requesting IV Dilaudid 2mg. Otherwise, she has no new medical complaints. She would like to go home if cleared by her sales enablement analyst Dr. Calderon. Objective Vitals Vital Signs Date Time Temp Pulse Resp B/P Pulse Ox O2 Delivery O2 Flow Rate FiO2 12/17/16 04:00 98.0 72 16 136/72 96 12/17/16 02:14 98.4 78 18 134/74 95 12/17/16 00:35 98.8 81 21 116/50 91 12/16/16 20:00 70 12/16/16 17:35 97.6 78 18 136/85 95 I/O 12/16/16 12/16/16 12/16/16 12/17/16 12/17/16 12/17/16 07:00 15:00 23:00 07:00 15:00 23:00 Intake Total 1520 ml 876 ml Balance 1520 ml 876 ml Intake Oral 720 ml IV Total 800 ml 876 ml # Voids 6 # Bowel Movements 0 Result Diagram: 12/16/1682912/16/16829 Imaging Last Impressions Chest X-Ray 12/15/162030 Signed Impressions: Service Date/Time: Thursday, December 15, 2016 20:51 - CONCLUSION: Normal examination for a patient of this age. Augusto Figueroa MD Objective Remarks GENERAL: Well-nourished, well-developed female patient in [facility]. SKIN: Warm and dry. No rash. HEAD: Normocephalic. Atraumatic. EYES: Pupils equal and round. No scleral icterus. No injection or drainage. ENT: No nasal bleeding or discharge. Mucous membranes pink and moist. NECK: Supple. Trachea midline. CARDIOVASCULAR: Regular rate and rhythm. S1, S2 noted. No murmur appreciated. RESPIRATORY: No accessory muscle use. Clear to auscultation. Breath sounds equal bilaterally. GASTROINTESTINAL: Abdomen soft, non-tender, nondistended. Normoactive bowel sounds x4. MUSCULOSKELETAL: No obvious deformities. Extremities without clubbing, cyanosis , or edema. NEUROLOGICAL: Awake and alert. No obvious cranial nerve deficits. Motor grossly within normal limits. 5/5 muscle strength in bilateral upper and lower extremities. Normal speech. PSYCHIATRIC: Appropriate mood and affect; insight and judgment normal. Medications and IVs Current Medications Medications (Trade) Dose Ordered Sig/Heydi Route Start Time Stop Time Status Last Admin (NS Flush) 2 ml UNSCH PRN IV FLUSH 12/15/16 22:30 (NS Flush) 2 ml BID IV FLUSH 12/16/16 09:00 (Zofran Inj) 4 mg Q6H PRN IVP 12/15/16 22:30 12/16/16 17:31 (Dulcolax Supp) 10 mg DAILY PRN PA 12/15/16 22:30 (Tylenol) 650 mg Q6H PRN PO 12/15/16 22:30 (Ecotrin Ec) 81 mg DAILY PO 12/16/16 09:00 12/16/16 08:03 (Coreg) 12.5 mg BID PO 12/16/16 09:00 12/16/16 21:37 (Norvasc) 10 mg DAILY PO 12/16/16 09:00 12/16/16 08:04 (Pravachol) 40 mg DAILY PO 12/16/16 09:00 12/15/16 23:21 (Opana Er) 30 mg Q12HR PO 12/16/16 09:00 12/16/16 21:36 (OxyCONTIN CR) 30 mg Q4H PO 12/16/16 09:00 12/17/16 05:43 (Pneumovax-23 Inj) 25 mcg ONCE ONCE IM 12/17/16 10:00 12/17/16 10:01 (Flu (Quadrivalent) Vaccine Inj) 0.5 ml ONCE ONCE IM 12/17/16 10:00 12/17/16 10:01 (Dilaudid Pf Inj) 1 mg Q3H PRN IV PUSH 12/16/16 17:00 12/17/16 04:34 Urinary Catheter: No Vascular Central Line Catheter: No A/P Problem List: (1) Chest pain ICD Code: R07.9 Status: Acute (2) Palpitations ICD Code: R00.2 Status: Acute (3) Dehydration ICD Code: E86.0 Status: Acute (4) HTN (hypertension) ICD Code: I10 Status: Acute Assessment and Plan 66-year-old female with a PMH of Anxiety, Depression, Chronic Pain s/p Morphine Pump, Hepatitis B and CAD who presented to the ER at the insistence of her , Dr. Burrows w/ Psychiatry, for further evaluation of complaints of chest pain and palpitations. Following w/ Dr. Calderon as outpatient, s/p Cardiac Cath 01/24/07 w/ 50% LAD stenosis, s/p angio-seal and plan for medical management. Chest Pain: Atypical. Intermittent chest pain x2-3 months, now w/ radiation to jaw/neck, minimal relief w/ NTG. ACS ruled out with negative serial cardiac enzymes x3 and EKG w/ no acute ischemia. Monitor on telemetry, no events recorded. Continue ASA, Statin, B-Brian. Consulted patient's sales enablement analyst Dr. Calderon, seen by Dr. Serrano over the weekend who recommended further evaluation by Dr. Calderon today. NTG/Morphine as needed. Currently chest pain free. Discussed with Lois Casey PA-C with Dr. Calderon, cleared for discharge today, outpatient nuclear stress test and Holter monitor. Palpitations: No events seen on telemetry, continue to monitor. K+ and Mg normal, will repeat labs in am. Echo normal with EF 60%. TSH wnl. Cardiology Consult for further eval. No further palpitations. Outpatient Holter Monitor. Dehydration: GFR 71, BUN/Creatinine normal, IVF for hydration, repeat labs with mild improvement. HTN: BP 150-160's while in ER, resume home medications, monitor BP. Chronic Pain: continue patient's oxycodone ER 30mg q4h prn and Oxymorphone 30mg q12h. IV dilaudid prn breakthrough. Outpatient f/up with pain management. DVT Prophylaxis: SCD/Teds. Written by Noelle Sy, acting as scribe for Dr. George on 12/17/16 at 09:30 All or portions of this note were transcribed by laylaibEusebia FRIEND. I, Dr. Katalina George personally performed the history, physical exam, and medical decision making; and confirmed the accuracy of the information in the transcribed note. Authenticated by Dr. Katalina George on 12/17/16 at 09:30 Discharge Planning Discharge patient to home Condition on discharge: Improved Heart Healthy Diet as tolerated Ad Leann activity Rx written: no new meds Follow-up with primary care physician, pain management, and cardiology Problem Qualifiers (1) Chest pain: Qualified Code: R07.9 - Chest pain, unspecified type Noelle Sy PA-C Dec 17, 2016 09:00 Katalina George MD Dec 17, 2016 14:05
[2016-12-17] MEDS: OXYMORPHONE 10 MG E.R. TAB PO SCH ×2 (09:01→21:36)
[2016-12-17] MEDS: SODIUM CHLORIDE 0.9% FLUSH 10 ML FLUSH IV FLUSH SCH ×3 (09:03→21:00)
--- NOTE | 2016-12-17 09:54 | HHI.DCPOC ---
Discharge Care Plan Diagnosis: (1) Chest pain (2) Palpitations (3) HTN (hypertension) (4) Chronic pain Goals to Promote Your Health * To prevent worsening of your condition and complications * To maintain your health at the optimal level Directions to Meet Your Goals Take your medications as prescribed Follow your dietary instruction Follow activity as directed Keep your appointments as scheduled Take your immunizations and boosters as scheduled If your symptoms worsen call your PCP, if no PCP go to Urgent Care Center or Emergency Room Smoking is Dangerous to Your Health. Avoid second hand smoke Call the 24-hour hour crisis hotline for domestic abuse at Noelle Sy PA-C Dec 17, 2016 09:54 Katalina George MD Dec 19, 2016 15:46
[2016-12-17] MEDS ORDERED: INFLUENZA VIRUS VACCINE (QUADRIVALENT) 0.5 ML SYR IM ONE (10:00)
[2016-12-17] MEDS ORDERED: PNEUMOCOCCAL POLYVALENT INJ 25 MCG/0.5 ML SYR IM ONE (10:00)
[2016-12-17] MEDS ORDERED: HYDROmorphone HCL PF 2 MG/ML VIAL IV PUSH ONE (11:00)
--- NOTE | 2016-12-17 11:09 | PD.CARD.PN ---
Subjective Subjective Remarks the patient presented with a three month history of palpitations that felt "irregular and tready" associated with left chest and shoulder pain and lightheadedness. Symptoms occur at night. She complains of SOB climbing two flights of stairs, but does not have recurrent chest pain, palpitations or lightheadedness. She has on nitro paste. No CP or SOB at rest. Tele reveals NSR with a single PVC. Objective Medications Current Medications Medications (Trade) Dose Ordered Sig/Heydi Route Start Time Stop Time Status Last Admin (NS Flush) 2 ml UNSCH PRN IV FLUSH 12/15/16 22:30 (NS Flush) 2 ml BID IV FLUSH 12/16/16 09:00 12/17/16 09:09 (Zofran Inj) 4 mg Q6H PRN IVP 12/15/16 22:30 12/16/16 17:31 (Dulcolax Supp) 10 mg DAILY PRN [place] 12/15/16 22:30 (Tylenol) 650 mg Q6H PRN PO 12/15/16 22:30 (Ecotrin Ec) 81 mg DAILY PO 12/16/16 09:00 12/17/16 09:00 (Coreg) 12.5 mg BID PO 12/16/16 09:00 12/17/16 09:00 (Norvasc) 10 mg DAILY PO 12/16/16 09:00 12/17/16 09:06 (Pravachol) 40 mg DAILY PO 12/16/16 09:00 12/17/16 09:00 (Opana Er) 30 mg Q12HR PO 12/16/16 09:00 12/17/16 09:01 (OxyCONTIN CR) 30 mg Q4H PO 12/16/16 09:00 12/17/16 09:01 (Dilaudid Pf Inj) 1 mg Q3H PRN IV PUSH 12/16/16 17:00 12/17/16 04:34 (Dilaudid Pf Inj) 2 mg ONCE ONCE IV PUSH 12/17/16 11:00 12/17/16 11:01 Vital Signs / I&O Vital Signs Date Time Temp Pulse Resp B/P Pulse Ox O2 Delivery O2 Flow Rate FiO2 12/17/16 04:00 98.0 72 16 136/72 96 12/17/16 02:14 98.4 78 18 134/74 95 12/17/16 00:35 98.8 81 21 116/50 91 12/16/16 20:00 70 12/16/16 17:35 97.6 78 18 136/85 95 I/O 12/16/16 12/16/16 12/16/16 12/17/16 12/17/16 12/17/16 07:00 15:00 23:00 07:00 15:00 23:00 Intake Total 1520 ml 876 ml Balance 1520 ml 876 ml Intake Oral 720 ml IV Total 800 ml 876 ml # Voids 6 # Bowel Movements 0 Physical Exam GENERAL: Obese, middle aged female SKIN: Warm and dry. HEAD: Normocephalic. EYES: No scleral icterus. No injection or drainage. NECK: Supple, trachea midline. No JVD or lymphadenopathy. CARDIOVASCULAR: Regular rate and rhythm without murmurs, gallops, or rubs. RESPIRATORY: Breath sounds equal bilaterally. No accessory muscle use. GASTROINTESTINAL: Abdomen soft, non-tender, nondistended. MUSCULOSKELETAL: No cyanosis, or edema. BACK: Nontender without obvious deformity. No CVA tenderness. Laboratory Laboratory Tests Test 12/16/16 17:10 Urine Color COLORLESS Urine Turbidity CLEAR Urine pH 7.5 Urine Specific [place] 1.002 Urine Protein NEG mg/dL Urine Glucose (UA) NEG mg/dL Urine Ketones NEG mg/dL Urine Occult Blood NEG Urine Nitrite NEG Urine Bilirubin NEG Urine Urobilinogen LESS THAN 2.0 MG/DL Urine Leukocyte Esterase NEG Urine RBC LESS THAN 1 /hpf Microscopic Urinalysis Comment CULT NOT INDICATED Assessment and Plan Assessment and Plan ASSESSMENT Chest pain - negative troponin, negative EKG for ischemia. Hx of cardiac cath 2006 revealed ASHD, negative Lexiscan 2011. Essentially normal echocardiogram. Palpitations- tele NSR with PVC SOB on exertion- CXR no acute disease. Cannot exclude ischemic equivalent HTN HLD Obesity Chronic pain PLAN: Remove Nitro patch and ambulate patient as tolerated. If no recurrent chest pain , will discharge with outpatient cardiac PET scan and MCOT. Continue ASA, statin and BB. Patient seen and evaluated by Dr. Calderon. Lois Casey Dec 17, 2016 11:08
[2016-12-18] MEDS: oxyCODONE HCL 10 MG CONTROLLED RELEASE TAB PO SCH ×3 (01:00→09:34)
[2016-12-18 04:28] VITALS: BP 127/69; PULSE 72; RESP 16; TEMP 98.2; O2SAT 96
[2016-12-18 08:00] VITALS: BP 139/67; PULSE 78; RESP 16; TEMP 98.4; O2SAT 94
[2016-12-18] MEDS ORDERED: REGADENOSON INJ 0.4 MG/5 ML SYR ONE (08:19)
[2016-12-18] MEDS: SODIUM CHLORIDE 0.9% FLUSH 10 ML FLUSH IV FLUSH SCH (09:00)
[2016-12-18] MEDS: PRAVASTATIN SOD 40 MG TAB PO SCH (09:33)
[2016-12-18] MEDS: ASPIRIN EC 81 MG TABEC PO SCH (09:33)
[2016-12-18] MEDS: CARVEDILOL 12.5 MG TAB PO SCH (09:33)
[2016-12-18] MEDS: OXYMORPHONE 10 MG E.R. TAB PO SCH (09:34)
--- NOTE | 2016-12-18 10:01 | RADRPT ---
EXAM DATE/TIME: 12/17/2016 16:14 [facility] COMPARISON: MYOCARDIAL PERF PHARM SPECT, GATED W/EF, June 24, 2012, 13:37. INDICATIONS : Substernal chest pain radiating to left arm and jaw with dyspnea. Angina. Coronary artery disease. DOSE: 30.1 mCi Tc99m Myoview at stress. 8.2 mCi Tc99m Myoview at rest. 0.4 mg Lexiscan STRESS SYMPTOMS: Lightheaded, midchest pain and shortness of breath. EJECTION FRACTION: 58% MEDICAL HISTORY : Hypertension. SURGICAL HISTORY : Appendectomy. Tubal ligation. Hysterectomy. Cholecystectomy. ENCOUNTER: Initial ACUITY: 1 day PAIN SCALE: 6/10 LOCATION: Substernal chest TECHNIQUE: The patient underwent pharmacologic stress with infusion of prescribed dose. Continuous ECG tracing was monitored during stress. Gated SPECT imaging was performed after stress and conventional SPECT i maging was performed at rest. The examination was performed on a SPECT/CT scanner, both attenuation and non-corrected datasets were reviewed. FINDINGS: DISTRIBUTION: The maximum perfused segment at stress is in the anterior wall. PERFUSION STUDY: The pattern of perfusion at stress is unchanged. No reversible perfusion defects identified. GATED STUDY: There is intact wall motion and thickening without hypokinetic or dyskinetic segments. CONCLUSION: No focal wall motion abnormality. No reversible perfusion defects. RISK CATEGORY: 1- Low Risk. Byron Pinedo MD on December 18, 2016 at 9:53 Board Certified Radiologist. This report was verified electronically.
--- NOTE | 2016-12-18 10:53 | HHI.DS ---
Discharge Summary Admission Date Dec 15, 2016 at 22:16 Discharge Date: Dec 18, 2016 Admitting Diagnosis Chest Pain, Palpitations (1) Chest pain ICD Code: R07.9 Diagnosis: Principal (2) Palpitations ICD Code: R00.2 Diagnosis: Principal (3) HTN (hypertension) ICD Code: I10 Diagnosis: Secondary (4) Chronic pain ICD Code: G89.29 Diagnosis: Secondary Procedures none Brief History - From Admission This is a 66-year-old female with a PMH of Anxiety, Depression, Chronic Pain s/ p Morphine Pump, Hepatitis B and CAD who presented to the ER at the insistence of her , Dr. Burrows w/ Psychiatry, for further evaluation of complaints of chest pain and palpitations. Per pt, she has been having intermittent chest pain x2-3 months, however has not sought medical attention. Today, pt w/ acute onset of chest pain while sitting in recliner w/ radiation to left neck/jaw. Dr. Burrows states he took her pulse and was noted to be thready w/ occasional PVCs. S/p NTG w/ no significant response, s/p Morphine w / relief. Following w/ Dr. Calderon as outpatient, s/p Cardiac Cath 01/24/07 w/ 50 % LAD stenosis, s/p angio-seal and plan for medical management. No further intervention since that time. On arrival, BP 169/81, HR 85, O2 sat 99% on RA, Afebrile. CBC unremarkable. GFR 71. Troponin negative. EKG with no acute ischemia. CXR with no acute findings. CBC/BMP: 12/16/16 0830 12/16/16 0830 Significant Findings Laboratory Tests Test 12/15/16 12/16/16 12/16/16 20:35 03:20 08:30 Red Blood Count 3.98 MIL/MM3 3.86 MIL/MM3 (4.00-5.30) (4.00-5.30) Lymphocytes (%) (Auto) 45.2 % (9.0-44.0) Estimat Glomerular Filtration 71 ML/MIN (>89) 84 ML/MIN (>89) Rate Random Glucose 109 MG/DL (74-106) Total Bilirubin 0.1 MG/DL (0.2-1.0) Troponin I LESS THAN 0.02 LESS THAN 0.02 LESS THAN 0.02 NG/ML NG/ML NG/ML (0.02-0.05) (0.02-0.05) (0.02-0.05) Monocytes (%) (Auto) 8.9 % (0.0-8.0) HDL Cholesterol 63.1 MG/DL (40.0-60.0) Imaging Last Impressions Myocardial Perfusion Scan Nuc Med 12/17/16 0000 Signed Impressions: Service Date/Time: Saturday, December 17, 2016 16:14 - CONCLUSION: No focal wall motion abnormality. No reversible perfusion defects. RISK CATEGORY: 1- Low Risk. Byron Pinedo MD Chest X-Ray 12/15/162030 Signed Impressions: Service Date/Time: Thursday, December 15, 2016 20:51 - CONCLUSION: Normal examination for a patient of this age. Augusto Figueroa MD PE at Discharge GENERAL: Well-nourished, well-developed female patient in [facility]. SKIN: Warm and dry. No rash. HEAD: Normocephalic. Atraumatic. EYES: Pupils equal and round. No scleral icterus. No injection or drainage. ENT: No nasal bleeding or discharge. Mucous membranes pink and moist. NECK: Supple. Trachea midline. CARDIOVASCULAR: Regular rate and rhythm. S1, S2 noted. No murmur appreciated. RESPIRATORY: No accessory muscle use. Clear to auscultation. Breath sounds equal bilaterally. GASTROINTESTINAL: Abdomen soft, non-tender, nondistended. Normoactive bowel sounds x4. MUSCULOSKELETAL: No obvious deformities. Extremities without clubbing, cyanosis , or edema. NEUROLOGICAL: Awake and alert. No obvious cranial nerve deficits. Motor grossly within normal limits. 5/5 muscle strength in bilateral upper and lower extremities. Normal speech. PSYCHIATRIC: Appropriate mood and affect; insight and judgment normal. Pt update on day of discharge Feels improved. Had stress test and negative, findings discussed with the patient. Says she is comfortable to go home today Patient in [facility]. Denies cp, sob., n/v/d/c. Feels much better. Hospital Course 66-year-old female with a PMH of Anxiety, Depression, Chronic Pain s/p Morphine Pump, Hepatitis B and CAD who presented to the ER at the insistence of her , Dr. Burrows w/ Psychiatry, for further evaluation of complaints of chest pain and palpitations. Following w/ Dr. Calderon as outpatient, s/p Cardiac Cath 01/24/07 w/ 50% LAD stenosis, s/p angio-seal and plan for medical management. Chest Pain: Atypical. Intermittent chest pain x2-3 months, now w/ radiation to jaw/neck, minimal relief w/ NTG. ACS ruled out with negative serial cardiac enzymes x3 and EKG w/ no acute ischemia. Monitor on telemetry, no events recorded. Continue ASA, Statin, B-Brian. Consulted patient's chenille machine operator Dr. Calderon, seen by Dr. Serrano over the weekend who recommended further evaluation by Dr. Calderon today. NTG/Morphine as needed. Currently chest pain free. Evaluated by Dr Calderon recommends stress test, patient has sttress test and normal. She was cleared by cardiology for DC to follow up as OP with Dr Calderon. Palpitations: No events seen on telemetry, continue to monitor. K+ and Mg normal, will repeat labs in am. Echo normal with EF 60%. TSH wnl. Cardiology Consult for further eval. No further palpitations. Outpatient Holter Monitor. Dehydration: GFR 71, BUN/Creatinine normal, IVF for hydration, repeat labs with mild improvement. HTN: BP 150-160's while in ER, resume home medications, monitor BP. Chronic Pain: continue patient's oxycodone ER 30mg q4h prn and Oxymorphone 30mg q12h. IV dilaudid prn breakthrough. Outpatient f/up with pain management. DVT Prophylaxis: SCD/Teds. Improved. Stress test is negative, findings discussed with the patient. Cleared by Dr Calderon cardiology for DC, to followup as OP with PCP and consultants. Pt Condition on Discharge: Stable Discharge Disposition: Discharge Home Discharge Time: <= 30 minutes Discharge Instructions DIET: Follow Instructions for: Heart Healthy Diet Activities you can perform: Regular-No Restrictions Follow up Referrals: Cardiology - 2-3 Days with Marquise Calderon MD Pain Management - 1 Week PCP Follow-up - 1 Week Continued Medications: Aspirin (Aspirin) 81 Mg Tab 81 MG PO DAILY Carvedilol (Coreg) 12.5 Mg Tab 12.5 MG PO BID Cholecalciferol (Vitamin D-3) 5,000 Unit Tab 5000 UNIT PO DAILY TAB Dicyclomine Hcl (Bentyl) 20 Mg Tab 20 MG PO QID PRN CRAMPS #20 TAB Esomeprazole Magnesium (Nexium) 40 Mg Cap 40 MG PO DAILY Fenofibrate (Fenofibrate) 145 Mg Tab 134 MG PO DAILY TAB Ibuprofen (Motrin) 100 Mg/5 Ml Susp 200 MG PO DAILY ML Levothyroxine Sodium (Synthroid) 112 Mcg Tab 112 MCG PO DAILY TAB Lorazepam (Ativan) 1 Mg Tab 1 MG PO BIDPRN Melatonin (Melatonin) 3 Mg Tab 3 TAB PO HS Morphine Sulfate (Morphine Sulfate) 25 Mg/Ml Inj 25 MG INTRA1 DAILY Norvasc (Norvasc) 10 Mg Tab 10 MG PO DAILY Oxycodone ER (OxyCONTIN ER) 10 Mg Tabcr 30 MG PO QID Oxymorphone Hcl (Opana Er (Crush Resistant) 30 Mg Tab 30 MG PO Q12HR TAB Pravastatin Sodium (Pravastatin Sodium) 40 Mg Tab 1 TAB PO DAILY TAB Probiotic Product (Probiotic Acidophilus) Cap 1 TAB PO DAILY CAP Prochlorperazine Maleate (Compazine 10 Mg Tab) 10 Mg Tab 10 MG PO DAILY PRN NAUSEA TAB Trazodone HCl (Trazodone HCl) 100 Mg Tab 200 MG PO HS TAB Valacyclovir Hcl (Valtrex) 500 Mg Tab 500 MG PO BID Katalina George MD Dec 18, 2016 10:53
[2016-12-18 12:00] VITALS: BP 121/56; PULSE 68; RESP 16; TEMP 98; O2SAT 93
== END 2016-12-18 13:50 | disposition home or self-care (01) ==
LOC: NEPE 20:12 → NEDA 22:16 → NEPHCDU 23:47 → N04B 12-17 01:59
PROVIDERS: ADMIT Hospitalist; ATTEND Hospitalist
DX: R07.89 Other chest pain (principal); R00.2 Palpitations; I10 Essential (primary) hypertension; E78.5 Hyperlipidemia, unspecified; F41.9 Anxiety disorder, unspecified; F32.9 Major depressive disorder, single episode, unspecified; E78.00 Pure hypercholesterolemia, unspecified; K21.9 Gastro-esophageal reflux disease without esophagitis; G62.9 Polyneuropathy, unspecified; I25.10 Atherosclerotic heart disease of native coronary artery without angina pectoris; E86.0 Dehydration; M54.9 Dorsalgia, unspecified; G89.29 Other chronic pain; Z88.8 Allergy status to other drugs, medicaments and biological substances; Z88.2 Allergy status to sulfonamides; Z79.82 Long term (current) use of aspirin; Z85.828 Personal history of other malignant neoplasm of skin
CPT/HCPCS: 71010; 78452; 80053; 80061; 81001; 82550; 83036; 83735; 84443; 84484; 85025; 85610; 85730; 93005; 93017; 93306; 96374; 96375; 99285; A9502; G0378; J1170; J2270; J2405; J2785; J7030

== ENCOUNTER → 2017-04-22 | Outpatient (CLI) | payer MEDICARE, OTHER ==
[2017-04-22 13:13] LABS: ALT (GPT) 37 U/L (10-53); ANION GAP 8 MEQ/L (5-15); AST (GOT) 30 U/L (15-37); BICARBONATE 27.8 MEQ/L (21.0-32.0); BLOOD UREA NITROGEN 12 MG/DL (7-18); CHLORIDE 99 MEQ/L (98-107); GLOMERULAR FILTRATION RATE 78 ML/MIN (>89); POTASSIUM 3.8 MEQ/L (3.5-5.1); SODIUM (NA) 135 MEQ/L (136-145)
[2017-04-22 13:39] LABS: ALKALINE PHOSPHATASE 66 U/L (45-117); HDL CHOLESTEROL 59.4 MG/DL (40.0-60.0); LDL CHOLESTEROL 69 MG/DL (0-99); TOTAL BILIRUBIN ADULT 0.3 MG/DL (0.2-1.0)
== END ==
LOC: OLAB 07:55
PROVIDERS: ATTEND Allergy & Immunology
DX: E78.2 Mixed hyperlipidemia (principal); R94.6 Abnormal results of thyroid function studies; D51.3 Other dietary vitamin B12 deficiency anemia
CPT/HCPCS: 36415; 80053; 80061; 82607; 84443

== ENCOUNTER → 2017-11-04 | Outpatient (CLI) | payer MEDICARE ==
[2017-11-04 08:58] LABS: HEMATOCRIT 36.5 % (35.0-46.0); HEMOGLOBIN 12.4 GM/DL (11.6-15.3); MEAN CORPUSCULAR HEMOGLOBIN 31.3 PG (27.0-34.0); MEAN PLATELET VOLUME 6.9 FL (7.0-11.0); PLATELET COUNT 340 TH/MM3 (150-450); RED BLOOD COUNT 3.96 MIL/MM3 (4.00-5.30); RED CELL DISTRIBUTION WIDTH 13.3 % (11.6-17.2); WHITE BLOOD COUNT 8.1 TH/MM3 (4.0-11.0)
[2017-11-04 09:29] LABS: ALBUMIN 3.6 GM/DL (3.4-5.0); AST (GOT) 16 U/L (15-37); BICARBONATE 30.6 MEQ/L (21.0-32.0); BLOOD UREA NITROGEN 9 MG/DL (7-18); CALCIUM 8.9 MG/DL (8.5-10.1); CHLORIDE 101 MEQ/L (98-107); CHOLESTEROL 142 MG/DL (120-200); CREATININE 0.63 MG/DL (0.50-1.00); GLOMERULAR FILTRATION RATE 95 ML/MIN (>89); GLUCOSE,FASTING 88 MG/DL (74-99); SODIUM (NA) 137 MEQ/L (136-145)
[2017-11-04 09:40] LABS: ALKALINE PHOSPHATASE 51 U/L (45-117); ALT (GPT) 26 U/L (10-53); CHOLESTEROL/ HDL RATIO 1.54 RATIO; HDL CHOLESTEROL 92.1 MG/DL (40.0-60.0); LDL CHOLESTEROL 38 MG/DL (0-99); TOTAL BILIRUBIN ADULT 0.3 MG/DL (0.2-1.0); TOTAL PROTEIN 6.8 GM/DL (6.4-8.2); TRIGLYCERIDES 58 MG/DL (42-150)
== END ==
LOC: OLAB 07:35
PROVIDERS: ATTEND Allergy & Immunology
DX: I10 Essential (primary) hypertension (principal); R94.6 Abnormal results of thyroid function studies; E78.2 Mixed hyperlipidemia
CPT/HCPCS: 36415; 80053; 80061; 84443; 85027

== ENCOUNTER 2018-05-12 15:00 | Inpatient (IN) ==
[2018-05-19] MEDS ORDERED: Metoprolol Inj 5 MG/5 ML Vial IV.PUSH ONE (12:00)
[2018-05-19] MEDS ORDERED: Lidocaine PF 1% Inj 5 ML Syringe INFILTRATN ONE (12:00)
[2018-05-19] MEDS ORDERED: hydrALAZINE HCl Inj 20 MG/ML Vial IV.PUSH ONE (12:00)
[2018-05-19] MEDS ORDERED: Sodium Chlor 0.9% Inj 500 ML IV.SIG SCH (12:30)
[2018-05-19] MEDS ORDERED: Metoprolol Tartrate 25 MG Tablet PO SCH (12:30)
[2018-05-19] MEDS ORDERED: Chlorhexidine Gluconate 2% 1 Pack (2 Cloths) TOPICAL SCH (12:30)
[2018-05-19] MEDS ORDERED: Vancomycin Inj 1,000 MG in Sodium Chlor 0.9% Inj 250 ML IV.SIG SCH (12:35)
[2018-05-19] MEDS ORDERED: ceFAZolin 2 GM Premix Inj 2 GM/100 ML BAG IV.SIG SCH (12:35)
[2018-05-19] MEDS ORDERED: Chlorhexidine 4% Topical 120 APPLIC/120 ML Bottle TOPICAL SCH (12:45)
[2018-05-19] MEDS ORDERED: TRANEXAMIC ACID IV.SIG SCH ×2 (13:00→16:00)
[2018-05-19] MEDS ORDERED: SODIUM CHLOR 0.9% IV.SIG SCH ×2 (13:00→16:00)
[2018-05-19] MEDS ORDERED: Sodium Chlor 0.9% Inj 40 ML, Bupivacaine Liposo PF 1.3% Inj 20 ML P-ARTICULR SCH ×2 (13:00)
[2018-05-19] MEDS ORDERED: Morphine Inj 4 MG/ML Vial ONE ×2 (14:23→18:10)
[2018-05-19] MEDS ORDERED: Bupivacaine Liposomal PF 1.3% Inj 20 ML Vial ONE (14:36)
[2018-05-19] MEDS ORDERED: Lidocaine PF 1% Inj 5 ML Vial ONE (14:37)
[2018-05-19] MEDS ORDERED: Bupivacaine PF 0.5% Inj 30 ML Vial ONE (14:39)
[2018-05-19] MEDS ORDERED: Bupivacaine/Epinephrine Inj 0.25% 50 ML Vial INFILTRATN ONE ×2 (16:49→17:30)
--- NOTE | 2018-05-19 17:25 | P.OP ---
- Preoperative Diagnosis (1) Osteoarthritis of left knee - Postoperative Diagnosis (1) Osteoarthritis of left knee Date of procedure: 05/19/18 Procedure: Left total knee arthroplasty Implants: Depuy Attune size 7 cemented femoral component, size 5 cemented tibial component with a 6 mm rotating platform tibial bearing and a 35 cemented polyethylene patellar dome Anesthesia: GUSTAVO Surgeon: Joey Mauricio MD Teacher Aide Clerical: Katlyn Fletcher PA-C ([place]) The surgical procedure was assisted by my physician's inventory assistant. Her presence was necessary throughout the case for manipulation and positioning of the surgical extremity. My PA was assisting me throughout the duration of this procedure. The skill set of the physician inventory assistant was medically necessary to complete this procedure. During the surgical case the assistant professor surgical technology was working at the back table and the physician inventory assistant was directly assisting me. Estimated blood loss (mL): 50 Tourniquet time (min): 84 Pathology: none sent Operation and Findings: Procedure and findings: The patient was taken to the operative suite and after undergoing an adequate level of general anesthesia was kept supine on the operating table. Preoperative antibiotics consisted of Ancef 2 g and vancomycin 1 g IV. The left lower extremity was then prepped and draped in usual sterile fashion with alcohol and Hibiclens. A standard anterior approach the knee was made with incision centered over the medial one third of the patella. This was carried down through skin and subcutaneous tense tissue with a knife. The quadricep tendon was identified proximally and the patellar tendon distally. A medial parapatellar arthrotomy was made. A small joint effusion was evacuated. Upon entering the knee joint is noted to be marked degenerative changes which were tricompartmental in nature. The remnant of the ACL was excised. The menisci were excised. Osteophytes were removed. Attention was first focused on the distal femur where an intramedullary guide was used to make a 5 valgus cut. A sizing jig was then applied and a 7 selected. With the cutting block in place the anterior, posterior and chamfer cuts were made. Attention was then focused on the proximal tibia. An extramedullary guide was used. Approximately 4 mm of bone was resected. The varus/valgus alignment was also checked with an extramedullary guide. The tibia was then sized to a 5. A freehand technique was utilized on the patella. This was sized to a 35. Drill holes were made and trial components placed. The 6 mm tibial bearing gave the best range of motion and stability. There was slight lateral patellar tracking. A lateral release was completed with an electrocautery device. These components were therefore selected. The femoral drill holes were made. The tibial cement punches were made. The wound was thoroughly irrigated with pulse lavage. Bone cement was prepared on the back table. After thorough drying it was applied to the proximal tibia. The tibial component was then impacted in the place. All excess bone cement was removed. Bone cement was then applied to the distal femur after thorough drying. The femoral component was then impacted in the place. All excess bone cement was removed. A trial tibial insert was then placed. The knee was then placed in full extension for further compression. After thorough drying bone cement was applied to the undersurface of the patella. The patellar button was seated and held with a compression clamp. All excess bone cement was removed. Once the cement had matured good range of motion, patellar tracking and stability was again noted. The size 6 rotating platform tibial insert was then seated. The wound was again thoroughly irrigated with pulse lavage. AutoVac drains were left in place. The incision was closed in layers utilizing #1 Vicryl suture on the extensor mechanism, 0 Vicryl suture on the deep tissue, 2-0 Vicryl suture on the subcutaneous tissue and dwight on the skin. Sterile dressings were applied the patient was awakened transferred to the hospital bed and taken to the recovery room in stable condition.
[2018-05-19] MEDS ORDERED: *Meperidine Inj 25 MG/ML Vial PERIprocedural Use ONLY ONE (17:39)
[2018-05-19] MEDS ORDERED: Morphine Inj 30 MG/30 ML PCA.VIAL PCA PRN (17:41)
[2018-05-19] MEDS: Morphine Inj 4 MG/ML Vial IV.PUSH PRN ×3 (17:45→18:20)
[2018-05-19] MEDS ORDERED: *morphine SULFATE 10 MG/ML PERIprocedure ONLY ONE ×3 (17:45→18:19)
[2018-05-19] MEDS ORDERED: Morphine Inj 30 MG/30 ML PCA.VIAL PCA ONE (17:55)
[2018-05-19] MEDS ORDERED: Naloxone Inj 0.4 MG/ML Vial IV.PUSH PRN (18:02)
[2018-05-19] MEDS: Morphine Inj 30 MG/30 ML PCA.VIAL PCA PRN ×2 (18:05→21:15)
[2018-05-19] MEDS ORDERED: fentaNYL Citrate Inj 100 MCG/2 ML Ampul ONE (18:09)
--- NOTE | 2018-05-19 18:26 | XR ---
EXAM DATE: 05/19/2018 6:07 PM EDT AGE/SEX: 68 years / Female INDICATIONS: Post op left knee. CLINICAL DATA: This is the patient's initial encounter. Patient reports that signs and symptoms have been present for 1 day and indicates a pain score of Nonresponsive. MEDICAL/SURGICAL HISTORY: None. None. COMPARISON: No prior exams available for comparison. FINDINGS: The patient is status post placement of a total knee prosthesis. The prosthetic components appear wel l placed. There is a suprapatellar drain. Skin dwight are seen anteriorly. Air seen within the joint space and in the soft tissues which is an expected postoperative finding. CONCLUSION: Successful total knee replacement. Electronically signed by: Tom Chaudhry MD 05/19/2018 6:25 PM EDT
[2018-05-19] MEDS ORDERED: HYDROmorphone PF Inj 2 MG/ML Vial ONE (18:29)
[2018-05-19] MEDS ORDERED: HYDROmorphone PF Inj 2 MG/ML Vial IV.PUSH PRN (19:02)
[2018-05-19] MEDS: oxyCODONE HCL 20 MG Controlled Release Tablet PO SCH (20:00)
[2018-05-19] MEDS: Melatonin 5 MG Tablet PO SCH (21:14)
[2018-05-19] MEDS: traZODone 100 MG Tablet PO SCH (21:14)
[2018-05-19] MEDS: valACYclovir 500 MG Tab PO SCH (21:15)
[2018-05-19] MEDS: LORazepam 1 MG Tablet PO SCH (21:15)
[2018-05-19] MEDS ORDERED: Sugammadex Inj 200 MG/2 ML Vial IV.PUSH ONE (22:59)
[2018-05-19] MEDS: ceFAZolin Inj 2,000 MG in Sodium Chlor 0.9% Inj 100 ML IV.SIG SCH (23:30)
[2018-05-20 06:29] LABS: Hematocrit 33.4 % (35.0-46.0); Hemoglobin 11.3 gm/dL (11.6-15.3)
[2018-05-20] MEDS: Morphine Inj 30 MG/30 ML PCA.VIAL PCA PRN ×2 (07:28→11:41)
--- NOTE | 2018-05-20 07:32 | P.PNOP ---
Subjective Interval history: POD #1 left total knee arthroplasty Pt awake and alert, she admits her knee 'hurts' but the pain is well controlled. Expresses interest in being discharged to rehab at [place]. Physical Exam Vital signs: Vital Signs 05/19/18 13:01 05/19/18 13:47 05/19/18 14:55 Temperature 97.6 F Pulse Rate 84 93 H Respiratory Rate 16 Blood Pressure 154/97 H Pulse Oximetry 95 99 97 05/19/18 17:33 05/19/18 17:45 05/19/18 17:47 Temperature 99.1 F Pulse Rate 82 83 84 Respiratory Rate 27 H 21 21 Blood Pressure 172/91 H 160/103 H 172/81 H Pulse Oximetry 95 96 96 05/19/18 18:00 05/19/18 18:15 05/19/18 18:30 Temperature Pulse Rate 83 82 83 Respiratory Rate 24 19 20 Blood Pressure 152/77 H 150/71 H 152/75 H Pulse Oximetry 95 94 L 94 L 05/19/18 18:45 05/19/18 19:00 05/19/18 19:30 Temperature Pulse Rate 83 79 87 Respiratory Rate 20 18 19 Blood Pressure 137/65 134/62 Pulse Oximetry 92 L 95 05/19/18 20:00 05/20/18 00:00 05/20/18 04:00 Temperature 97.7 F 98.5 F 98.8 F Pulse Rate 97 H 107 H 105 H Respiratory Rate 18 18 18 Blood Pressure 171/86 H 169/93 H 176/88 H Pulse Oximetry 98 96 96 Intake & Output 05/19/18 05/20/18 05/20/18 18:59 06:59 18:59 Intake Total 1499.3 / 1499.3 780 / 780 Output Total 50 / 50 300 / 300 Balance 1449.3 / 1449.3 480 / 480 Weight 93 kg 93 kg Intake: IV 1459.3 / 1459.3 LR 1000 mL Inj 1,000 ML @ 30 1000 / 1000 mls/hr IV.SIG .Q24H [facility] Rx#: [id number] Cyklokapron Inj 930 MG In NS 109.3 / 109.3 Inj 100 ML @ 200 mls/hr IV.SIG ONCE [facility] Rx#:[id number] Vancomycin Inj 1,000 MG In NS 250 / 250 Inj 250 ML @ 250 mls/hr IV.SIG [facility] Rx#:[id number] Ancef 2 GM Premix Inj 2 gm In 100 / 100 100 ml @ 200 mls/hr IV.SIG [facility] Rx#:[id number] Oral 740 / 740 Anesthesia Amount 40 / 40 40 / 40 Output: Urine 250 / 250 Estimated Blood Loss 50 / 50 50 / 50 Other: # Voids 2 Weight On Admission 93 kg Narrative: Dressing dry and intact. Brace in place. +drain, Tender to palpation with mild swelling around incision site. Appropriate range of motion expected post operatively. Freely able to move distal digits. No calf pain. Negative Berry's sign. Good cap refill. 2+ pedal pulses. Neurovascular intact. Results - Labs CBC & Chem 7: 05/20/18 04:45 Laboratory Results - last 24 hr 05/19/18 05/20/18 12:44 04:45 Hgb 11.3 L Hct 33.4 L Blood Type A Positive Blood Type Recheck Required Antibody Screen Negative - Imaging Impressions Knee X-Ray 05/19/18 00:00 CONCLUSION: Successful total knee replacement. - Procedures Left Total Knee Arthroplasty 05/19/18, Dr Mauricio Assessment and Plan - Ortho Post Op Day # 1 - Assessment and Plan POD #1 Left TKA Ortho status stable Progress rehab w/b as tolerated No change dressing - ok to remove cory wrap/soft roll POD #2 D/C drain when <30cc a shift Lovenox for DVT prophylaxis. Pt is at an increased risk of clots. Discharge planning - CM to arrange HHC vs rehab
[2018-05-20] MEDS: Levothyroxine 112 MCG Tablet PO SCH (07:50)
[2018-05-20] MEDS: Lactobacillus Acidophilus/L. Spores Tablet PO SCH (08:33)
[2018-05-20] MEDS: Docusate Sodium 100 MG Capsule PO SCH (08:33)
[2018-05-20] MEDS: Fenofibrate 145 MG Tablet PO SCH (08:33)
[2018-05-20] MEDS: amLODIPine 10 MG Tablet PO SCH (08:33)
[2018-05-20] MEDS: Carvedilol 12.5 MG Tablet PO SCH (08:33)
[2018-05-20] MEDS: valACYclovir 500 MG Tab PO SCH ×2 (08:33→21:02)
[2018-05-20] MEDS: LORazepam 1 MG Tablet PO SCH ×2 (08:33→21:01)
[2018-05-20] MEDS: oxyCODONE HCL 20 MG Controlled Release Tablet PO SCH ×2 (08:37→21:01)
[2018-05-20] MEDS: ceFAZolin Inj 2,000 MG in Sodium Chlor 0.9% Inj 100 ML IV.SIG SCH ×2 (08:42→14:23)
--- NOTE | 2018-05-20 12:18 | P.CON ---
History of Present Illness Service: Hospital Consult date: 05/20/18 Requesting Physician: Joey Mauricio Reason for Consult: Medical management Primary Care Provider: Jennifer Martins DO Chief Complaint: Knee pain History of Present Illness: Patient is a 68-year-old female who was admitted on 05/19/18 for total left knee arthroplasty by Dr. Mauricio. Past medical history includes anxiety, depression, chronic back pain with morphine pump, hepatitis B, hypertension and CAD. She is seen today sitting up in a bedside chair. She tells me that she is still having a lot of pain in her knee, acknowledges that the current morphine pump is adequate but just barely. Denies any chest pain or shortness of breath. No no vomiting but some nausea. She has been tolerating meals and urinating normally. Has not yet had a bowel movement. 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 Hx of low back pain Hyperlipidemia Hypertension - Surgical History Surgical History: Surgical History (Last Reviewed 05/20/18 @ 11:59 by JESSIE Dodson) H/O tubal ligation History of back surgery Hx of appendectomy Hx of cardiac cath Hx of cholecystectomy Hx of oophorectomy Hx of tonsillectomy - Family History Family History: Family History (Last Reviewed 05/20/18 @ 12:01 by JESSIE Dodson) Other Family history non-contributory - Tobacco History Second Hand Smoke Exposure: No Tobacco Use In Past 30 Days: No Smoking Status: Former smoker - Alcohol History How Often Do You Have a Drink Containing Alcohol: 2 to 4 times a month - Substance Use History Substance History: No History of Abuse - Travel History Recent Travel in the [place] Within the Last 8 Weeks: No Recent Travel Out of the Country Within the Last 8 Weeks: No Medications and Allergies Active Medications: Active Medications Amlodipine Besylate (Norvasc) 10 mg PO DAILY [facility] Last Admin: 05/20/18 08:33 Dose: 10 mg Carvedilol (Coreg) 12.5 mg PO DAILY [facility] Last Admin: 05/20/18 08:33 Dose: 12.5 mg Chlorhexidine Gluconate (Chlorhexidine 2% Cloth) 3 pack [employer] [facility] Stop: 05/22/18 12:24 Last Admin: 05/19/18 13:19 Dose: 3 pack Chlorhexidine Gluconate (Hibiclens 4% Topical) 1 applicatio TOPICAL ONCE [facility] Stop: 05/23/18 12:44 Last Admin: 05/19/18 13:20 Dose: 1 applicatio Cyclobenzaprine HCl (Flexeril) 10 mg PO TID PRN PRN Reason: SPASM Last Admin: 05/20/18 06:35 Dose: 10 mg Dicyclomine HCl (Bentyl) 20 mg PO TID [facility] Last Admin: 05/20/18 08:33 Dose: 20 mg Docusate Sodium (Colace) 200 mg PO DAILY [facility] Last Admin: 05/20/18 08:33 Dose: 200 mg Enoxaparin Sodium (Lovenox Inj) 40 mg SQ Q24H [facility] Fenofibrate (Tricor) 145 mg PO DAILY [facility] Last Admin: 05/20/18 08:33 Dose: 145 mg Sodium Chloride (Ns Inj) 500 mls @ 30 mls/hr IV.SIG .Q10H [facility] Stop: 05/22/18 12:29 Vancomycin HCl 1,000 mg/ (Sodium Chloride) 250 mls @ 250 mls/hr IV.SIG [employer] [facility] Stop: 05/22/18 12:34 Last Infusion: 05/19/18 16:25 Dose: Infused Cefazolin/Sodium Chloride (Ancef 2 Gm Premix Inj) 2 gm in 100 mls @ 200 mls/hr IV.SIG [employer] [facility] Stop: 05/22/18 12:34 Last Infusion: 05/19/18 16:25 Dose: Infused Cefazolin Sodium 2,000 mg/ (Sodium Chloride) 120 mls @ 240 mls/hr IV.SIG Q8H [facility] Stop: 05/20/18 15:29 Last Infusion: 05/20/18 11:36 Dose: Infused Morphine Sulfate (Morphine Inj) 30 mg in 30 mls @ 0 mls/hr KNOCK OUT HAND UNSCH PRN PRN Reason: per KNOCK OUT HAND parameters Last Admin: 05/20/18 11:41 Dose: 0 mls/hr Lactated Ringer's (Lr 1000 Ml Inj) 1,000 mls @ 30 mls/hr IV.CONT .Q24H [facility] Last Admin: 05/19/18 18:05 Dose: 30 mls/hr Lactobacillus Acidophilus (Lactinex) 1 tab PO DAILY [facility] Last Admin: 05/20/18 08:33 Dose: 1 tab Levothyroxine Sodium (Synthroid) 112 mcg PO DAILY@0600 [facility] Last Admin: 05/20/18 07:50 Dose: 112 mcg Lorazepam (Ativan) 1 mg PO BID [facility] Last Admin: 05/20/18 08:33 Dose: 1 mg Lorazepam (Ativan Inj) 1 mg IV.PUSH Q4H PRN PRN Reason: ANXIETY AND/OR AGITATION Last Admin: 05/19/18 17:50 Dose: 1 mg Melatonin (Melatonin) 5 mg PO HS [facility] Last Admin: 05/19/18 21:14 Dose: 5 mg Metoprolol Tartrate (Lopressor) 25 mg PO [employer] [facility] Stop: 05/22/18 12:24 Miscellaneous Information ([facility] Nursing Information) 1 each OTHER UNSCH PRN PRN Reason: SEE LABEL COMMENTS Stop: 05/20/18 17:32 Naloxone HCl (Narcan Inj) 0.4 mg IV.PUSH UNSCH PRN PRN Reason: Resp rate < 10 Ondansetron HCl (Zofran Inj) 4 mg IV.PUSH Q6H PRN PRN Reason: NAUSEA OR VOMITING Last Admin: 05/20/18 09:26 Dose: 4 mg Oxycodone HCl (Roxicodone) 30 mg PO Q6H [facility] Last Admin: 05/20/18 08:33 Dose: 30 mg Oxycodone HCl (Oxycontin Cr) 20 mg PO Q12H [facility] Last Admin: 05/20/18 08:37 Dose: 20 mg Pantoprazole Sodium (Protonix) 40 mg PO DAILY [facility] Last Admin: 05/20/18 08:34 Dose: 40 mg Povidone Iodine (Betadine 5% Antisepsis Kit) 1 applicatio EACH [employer] [facility] Stop: 05/22/18 12:24 Last Admin: 05/19/18 13:19 Dose: 1 applicatio Pravastatin Sodium (Pravachol) 40 mg PO DAILY [facility] Last Admin: 05/20/18 08:33 Dose: 40 mg Trazodone HCl (Desyrel) 200 mg PO [facility] Last Admin: 05/19/18 21:14 Dose: 100 mg Valacyclovir HCl (Valtrex) 500 mg PO BID [facility] Last Admin: 05/20/18 08:33 Dose: 500 mg Vitamin D (Vitamin D3) 5,000 unit PO DAILY [facility] Last Admin: 05/20/18 08:34 Dose: 5,000 unit Allergies Allergy/AdvReac Type Severity Reaction Status Date / Time Sulfa (Sulfonamide Allergy Mild hIVES Verified 05/19/18 13:18 Antibiotics) pentazocine AdvReac Mild HALLUCINATI Verified 05/19/18 13:18 ONS propoxyphene AdvReac Mild NAUSEA & Verified 05/19/18 13:18 VOMITING clindamycin AdvReac Itching Verified 05/19/18 12:36 *MDRO Multi-Drug Resistant Allergy Unknown Abdominal Uncoded 05/08/18 14:02 Organism Pain Home Medications Medication Instructions Recorded Confirmed Type amlodipine [Norvasc] 10 mg PO DAILY 05/08/18 05/19/18 History aspirin [Aspir-81] 81 mg PO DAILY 05/08/18 05/09/18 History biotin 10,000 mcg PO DAILY 05/08/18 05/19/18 History carvedilol [Coreg] 12.5 mg PO DAILY 05/08/18 05/19/18 History cholecalciferol (vitamin D3) 5,000 unit PO DAILY 05/08/18 05/19/18 History [Vitamin D3] cyclobenzaprine 10 mg PO TID PRN 05/08/18 05/19/18 History dicyclomine 20 mg PO TID 05/08/18 05/19/18 History docusate sodium [Colace] 200 mg PO DAILY 05/08/18 05/19/18 History esomeprazole magnesium [Nexium] 40 mg PO DAILY 05/08/18 05/19/18 History fenofibrate micronized 134 mg PO DAILY 05/08/18 05/19/18 History lactobacillus combination no.4 3,000 mmu cells PO DAILY 05/08/18 05/19/18 History [Probiotic] levothyroxine [Synthroid] 112 mcg PO DAILY 05/08/18 05/19/18 History lorazepam [Ativan] 1 mg PO BID 05/08/18 05/19/18 History melatonin 3 mg PO HS 05/08/18 05/19/18 History morphine (PF) 25 mg INTRATHECAL DIRECTED 05/08/18 05/08/18 History oxycodone 30 mg PO Q6HR 05/08/18 05/19/18 History oxycodone [OxyContin] 20 mg PO Q12H 05/08/18 05/19/18 History pravastatin 40 mg PO DAILY 05/08/18 05/19/18 History trazodone 200 mg PO HS 05/08/18 05/19/18 History valacyclovir [Valtrex] 500 mg PO BID 05/08/18 05/19/18 History cephalexin [Keflex] 500 mg PO QID 05/19/18 05/19/18 History Physical Exam Vital signs: Vital Signs 05/19/18 13:01 05/19/18 13:47 05/19/18 14:55 Temperature 97.6 F Pulse Rate 84 93 H Respiratory Rate 16 Blood Pressure 154/97 H Pulse Oximetry 95 99 97 05/19/18 17:33 05/19/18 17:45 05/19/18 17:47 Temperature 99.1 F Pulse Rate 82 83 84 Respiratory Rate 27 H 21 21 Blood Pressure 172/91 H 160/103 H 172/81 H Pulse Oximetry 95 96 96 05/19/18 18:00 05/19/18 18:15 05/19/18 18:30 Temperature Pulse Rate 83 82 83 Respiratory Rate 24 19 20 Blood Pressure 152/77 H 150/71 H 152/75 H Pulse Oximetry 95 94 L 94 L 05/19/18 18:45 05/19/18 19:00 05/19/18 19:30 Temperature Pulse Rate 83 79 87 Respiratory Rate 20 18 19 Blood Pressure 137/65 134/62 Pulse Oximetry 92 L 95 05/19/18 20:00 05/20/18 00:00 05/20/18 04:00 Temperature 97.7 F 98.5 F 98.8 F Pulse Rate 97 H 107 H 105 H Respiratory Rate 18 18 18 Blood Pressure 171/86 H 169/93 H 176/88 H Pulse Oximetry 98 96 96 05/20/18 08:00 05/20/18 11:08 Temperature 99.0 F Pulse Rate 104 H Respiratory Rate 18 Blood Pressure 169/81 H Pulse Oximetry 94 L 96 Intake & Output 05/19/18 05/20/18 05/20/18 18:59 06:59 18:59 Intake Total 1499.3 / 1499.3 900 / 900 120 / 120 Output Total 50 / 50 300 / 300 Balance 1449.3 / 1449.3 600 / 600 120 / 120 Weight 93 kg 93 kg Intake: IV 1459.3 / 1459.3 120 / 120 120 / 120 LR 1000 mL Inj 1,000 ML @ 30 1000 / 1000 mls/hr IV.SIG .Q24H [facility] Rx#: [id number] Cyklokapron Inj 930 MG In NS 109.3 / 109.3 Inj 100 ML @ 200 mls/hr IV.SIG ONCE [facility] Rx#:[id number] Vancomycin Inj 1,000 MG In NS 250 / 250 Inj 250 ML @ 250 mls/hr IV.SIG [employer] [facility] Rx#:[id number] Ancef 2 GM Premix Inj 2 gm In 100 / 100 100 ml @ 200 mls/hr IV.SIG [facility] [facility] Rx#:[id number] Ancef Inj 2,000 MG In NS Inj 120 / 120 120 / 120 100 ML @ 240 mls/hr IV.SIG Q8H [facility] Rx#:[id number] Oral 740 / 740 Anesthesia Amount 40 / 40 40 / 40 Output: Urine 250 / 250 Estimated Blood Loss 50 / 50 50 / 50 Other: # Voids 2 Weight On Admission 93 kg Narrative: GENERAL: Well-nourished, well-developed adult female in no obvious distress. Some discomfort; patient has morphine KNOCK OUT HAND. SKIN: Warm and dry. HEAD: Atraumatic. Normocephalic. CARDIOVASCULAR: Regular rate and rhythm. RESPIRATORY: No accessory muscle use. Clear to auscultation. Breath sounds equal bilaterally. GASTROINTESTINAL: Abdomen soft, non-tender, non-distended. Positive bowel sounds. MUSCULOSKELETAL: Left knee wrapped with drain -sanguinous. Both extremities well perfused. Generalized edema; patient noted to have feet in dependent position. NEUROLOGICAL: Awake and alert. No obvious cranial nerve deficits. Motor grossly within normal limits. Normal speech. PSYCHIATRIC: Appropriate mood and affect; insight and judgment good. Assessment and Plan - Plan Patient is a 68-year-old female who was admitted on 05/19/18 for total left knee arthroplasty by Dr. Mauricio. Past medical history includes anxiety, depression, chronic back pain with morphine pump, hepatitis B, hypertension and CAD. Total left knee arthroplasty -Managed by orthopedics Nausea; acute -Likely exacerbated by pain/medications. Zofran as needed. Hypertension/CAD -Continue home medications Norvasc and Coreg. BP elevated at time of exam 05/20 ; patient had not yet had blood pressure medications. Monitor vitals. -Adequate pain control to avoid exacerbating BP Hypothyroid -Continue levothyroxine 112 mcg daily. DVT prophylaxis: Per Ortho -Lovenox Discussed with: Patient and nurse Discharge planning: Per Ortho -patient would like to go to [place]. Case management consulted by orthopedics. Thank you for this consult. We look forward to assisting you with the medical management of this patient.
[2018-05-20] MEDS: Enoxaparin Inj 40 MG/0.4 ML Syringe SQ SCH (17:15)
[2018-05-20] MEDS: traZODone 100 MG Tablet PO SCH (21:00)
[2018-05-20] MEDS: Melatonin 5 MG Tablet PO SCH (21:02)
[2018-05-21] MEDS: Morphine Inj 30 MG/30 ML PCA.VIAL PCA PRN ×2 (01:05→08:54)
[2018-05-21 04:30] LABS: Hematocrit 30.6 % (35.0-46.0); Hemoglobin 10.3 gm/dL (11.6-15.3)
[2018-05-21] MEDS: Levothyroxine 112 MCG Tablet PO SCH (06:13)
[2018-05-21] MEDS: oxyCODONE HCL 20 MG Controlled Release Tablet PO SCH ×2 (08:37→21:52)
[2018-05-21] MEDS: Lactobacillus Acidophilus/L. Spores Tablet PO SCH (09:53)
[2018-05-21] MEDS: Carvedilol 12.5 MG Tablet PO SCH (09:53)
[2018-05-21] MEDS: LORazepam 1 MG Tablet PO SCH ×2 (09:53→21:53)
[2018-05-21] MEDS: amLODIPine 10 MG Tablet PO SCH (09:53)
[2018-05-21] MEDS: Fenofibrate 145 MG Tablet PO SCH (09:53)
[2018-05-21] MEDS: valACYclovir 500 MG Tab PO SCH ×2 (09:54→21:53)
[2018-05-21] MEDS: Docusate Sodium 100 MG Capsule PO SCH (09:54)
--- NOTE | 2018-05-21 12:46 | P.PNOP ---
Subjective Interval history: Postoperative day #2 left total knee arthroplasty. Patient is resting comfortably and was sleeping upon entering the room. She states her pain is improved. She has no other specific complaint. Physical Exam Vital signs: Vital Signs 05/20/18 16:00 05/20/18 20:00 05/21/18 00:00 Temperature 99.0 F 99.7 F H 98.4 F Pulse Rate 98 H 108 H 106 H Respiratory Rate 16 18 18 Blood Pressure 172/82 H 187/87 H 162/76 H Pulse Oximetry 97 93 L 93 L 05/21/18 08:00 05/21/18 10:03 Temperature 98.3 F Pulse Rate 101 H Respiratory Rate 19 Blood Pressure 160/73 H Pulse Oximetry 96 97 Intake & Output 05/20/18 05/21/18 05/21/18 18:59 06:59 18:59 Intake Total 820 / 820 1600 / 1600 120 / 120 Output Total 30 / 30 40 / 40 Balance 790 / 790 1560 / 1560 120 / 120 Weight 93 kg Intake: IV 120 / 120 1000 / 1000 120 / 120 LR 1000 mL Inj 1,000 ML @ 30 1000 / 1000 mls/hr IV.CONT .Q24H [facility] Rx#: [id number] Ancef Inj 2,000 MG In NS Inj 120 / 120 100 ML @ 240 mls/hr IV.SIG Q8H [facility] Rx#:[id number] Oral 700 / 700 600 / 600 Output: Wound Drainage 40 / 40 # 1 Left Knee 40 / 40 Other: # Voids 3 4 Date of Last Bowel Movement 05/19/18 # Bowel Movements 0 Narrative: The left knee dressing is dry and intact. She moves her toes and ankle freely. She denies calf pain and has a negative Homans sign. Neurologically no focal deficit. Results - Labs CBC & Chem 7: 05/21/18 03:39 Laboratory Results - last 24 hr 05/21/18 03:39 Hgb 10.3 L Hct 30.6 L - Procedures Left Total Knee Arthroplasty 05/19/18, Dr Mauricio Assessment and Plan - Ortho Post Op Day # 2 - Problem List (1) Osteoarthritis of left knee Code(s): M17.12 - Unilateral primary osteoarthritis, left knee Status: Acute Qualifiers: Osteoarthritis type: primary Qualified Code(s): M17.12 - Unilateral primary osteoarthritis, left knee Plan: Orthopedic status stable postoperative day #2 left total knee arthroplasty. Progress rehabilitation. Anticipate discharge to rehab 05/22/2018 - Assessment and Plan POD #2 Left TKA Ortho status stable Progress rehab w/b as tolerated No change dressing - ok to remove cory wrap/soft roll Lovenox for DVT prophylaxis. Pt is at an increased risk of clots. Discharge planning - CM to arrange HHC vs rehab
--- NOTE | 2018-05-21 14:22 | P.PN ---
Subjective Interval history: Patient is lying in bed. She is very drowsy and only wakes briefly. Acknowledges that she is still having significant pain. Physical Exam Vital signs: Vital Signs 05/20/18 16:00 05/20/18 20:00 05/21/18 00:00 Temperature 99.0 F 99.7 F H 98.4 F Pulse Rate 98 H 108 H 106 H Respiratory Rate 16 18 18 Blood Pressure 172/82 H 187/87 H 162/76 H Pulse Oximetry 97 93 L 93 L 05/21/18 08:00 05/21/18 10:03 05/21/18 12:00 Temperature 98.3 F 98.4 F Pulse Rate 101 H 88 Respiratory Rate 19 17 Blood Pressure 160/73 H 148/71 H Pulse Oximetry 96 97 94 L Intake & Output 05/20/18 05/21/18 05/21/18 18:59 06:59 18:59 Intake Total 820 / 820 1600 / 1600 120 / 120 Output Total 30 / 30 40 / 40 Balance 790 / 790 1560 / 1560 120 / 120 Weight 93 kg Intake: IV 120 / 120 1000 / 1000 120 / 120 LR 1000 mL Inj 1,000 ML @ 30 1000 / 1000 mls/hr IV.CONT .Q24H PATRICIA Rx#: [id number] Ancef Inj 2,000 MG In NS Inj 120 / 120 100 ML @ 240 mls/hr IV.SIG Q8H PATRICIA Rx#:[id number] Oral 700 / 700 600 / 600 Output: Wound Drainage 40 / 40 # 1 Left Knee 30 30 40 / 40 Other: # Voids 3 4 Date of Last Bowel Movement 05/19/18 # Bowel Movements 0 Narrative: GENERAL: Well-nourished, well-developed adult female in no obvious distress. 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 SKIN: Warm and dry. HEAD: Atraumatic. Normocephalic. CARDIOVASCULAR: Regular rate and rhythm. RESPIRATORY: No accessory muscle use. Clear to auscultation. Breath sounds equal bilaterally. GASTROINTESTINAL: Abdomen soft, non-tender, non-distended. Positive bowel sounds. MUSCULOSKELETAL: Left knee wrapped with drain -sanguinous. Both extremities well perfused. Generalized edema; patient noted to have feet in dependent position. NEUROLOGICAL: Awake and alert. No obvious cranial nerve deficits. Motor grossly within normal limits. Normal speech. PSYCHIATRIC: Appropriate mood and affect; insight and judgment good. Results - Labs CBC & Chem 7: 05/21/18 03:39 Laboratory Results - last 24 hr 05/21/18 03:39 Hgb 10.3 L Hct 30.6 L - Procedures Left Total Knee Arthroplasty 05/19/18, Dr Mauricio Assessment and Plan - Plan Patient is a 68-year-old female who was admitted on 05/19/18 for total left knee arthroplasty by Dr. Mauricio. Past medical history includes anxiety, depression, chronic back pain with morphine pump, hepatitis B, hypertension and CAD. Total left knee arthroplasty -Managed by orthopedics Acute pain w/ chronic pain -Has pain pump - not active -NUCLEAR PHYSICS PROFESSOR morphine plus PO oxy; avoid oversedation -managed by ortho Nausea; acute -Likely exacerbated by pain/medications. Zofran as needed. Hypertension/CAD -Continue home medications Norvasc and Coreg. BP elevated at time of exam 05/20 ; patient had not yet had blood pressure medications; improved 05/21. Monitor vitals. -Adequate pain control to avoid exacerbating BP Hypothyroid -Continue levothyroxine 112 mcg daily. DVT prophylaxis: Per Ortho -Lovenox Discussed with: Patient and nurse Discharge planning: Per Ortho -patient would like to go to [address]. Case management consulted by orthopedics.
[2018-05-21] MEDS: Enoxaparin Inj 40 MG/0.4 ML Syringe SQ SCH (19:00)
[2018-05-21] MEDS: Morphine Inj 4 MG/ML Vial IV.PUSH PRN (20:25)
[2018-05-21] MEDS: traZODone 100 MG Tablet PO SCH (21:52)
[2018-05-21] MEDS: Melatonin 5 MG Tablet PO SCH (21:53)
[2018-05-22] MEDS: Morphine Inj 4 MG/ML Vial IV.PUSH PRN ×2 (04:38→09:11)
[2018-05-22] MEDS: Levothyroxine 112 MCG Tablet PO SCH (06:39)
--- NOTE | 2018-05-22 07:25 | P.PNOP ---
Subjective Interval history: POD #3 L TKA Pt awake and lays on her back for me so I can remove cory wrap/soft roll. Pt is in mild pain but comfortable. Pt admits she has not 'walked the halls' or sat up in a chair. Pt states she has gotten up to use BSC. [facility] which I think will be beneficial given her medical history. Physical Exam Vital signs: Vital Signs 05/21/18 08:00 05/21/18 09:10 05/21/18 10:03 Temperature 98.3 F Pulse Rate 101 H Respiratory Rate 19 18 Blood Pressure 160/73 H Pulse Oximetry 96 97 05/21/18 12:00 05/21/18 15:10 05/21/18 17:25 Temperature 98.4 F 98.3 F Pulse Rate 88 96 H Respiratory Rate 17 18 18 Blood Pressure 148/71 H 158/77 H Pulse Oximetry 94 L 93 L 05/21/18 17:26 05/21/18 20:00 05/22/18 00:00 Temperature 98.8 F 98.1 F Pulse Rate 101 H 100 H Respiratory Rate 18 17 18 Blood Pressure 155/74 H 145/65 H Pulse Oximetry 97 93 L 05/22/18 02:15 05/22/18 04:00 Temperature 98.4 F Pulse Rate 100 H Respiratory Rate 18 18 Blood Pressure 150/69 H Pulse Oximetry 95 Intake & Output 05/21/18 05/22/18 05/22/18 18:59 06:59 18:59 Intake Total 1320 / 1320 Output Total 500 / 500 Balance 1320 / 1320 -500 / -500 Intake: IV 120 / 120 Oral 1200 / 1200 Output: Urine 500 / 500 Other: # Voids 3 3 Date of Last Bowel Movement 05/19/18 05/20/18 Narrative: cory wrap was removed for exam, Dressing has mild area of saturation on distal lateral aspect. + drain, Tender to palpation with mild swelling around incision site. Appropriate range of motion expected post operatively. Freely able to move distal digits. No calf pain. Negative Berry's sign. Good cap refill. 2+ pedal pulses. Neurovascular intact. Results - Labs CBC & Chem 7: 05/21/18 03:39 - Procedures Left Total Knee Arthroplasty 05/19/18, Dr Mauricio Assessment and Plan - Ortho Post Op Day # 3 - Problem List (1) Osteoarthritis of left knee Code(s): M17.12 - Unilateral primary osteoarthritis, left knee Status: Acute Qualifiers: Osteoarthritis type: primary Qualified Code(s): M17.12 - Unilateral primary osteoarthritis, left knee - Assessment and Plan POD #3 Left TKA Ortho status stable Progress rehab w/b as tolerated. Up to chair No change dressing D/C drain Ice PRN Lovenox for DVT prophylaxis. Pt is at an increased risk of clots. Clear for d/c to [facility] rehab today given pt significant medical history and difficulty with pain management.
--- NOTE | 2018-05-22 07:31 | P.DS ---
Date of admission: 05/19/18 11:35 Primary care physician: Jennifer Martins DO Brief History from admission: Pt presents to hospital for left total knee arthroplasty. After multiple conservative treatments including medication, brace wear, injections and therapy she felt ready for surgical management. DS: Diagnosis - Discharge Diagnosis (1) Osteoarthritis of left knee Status: Acute DS: Summary Hospital Course: On the day of admission the patient was taken to the operating room where the patient underwent left total knee arthroplasty. The patient tolerated the procedure well. For details of operative report please see dictated operative report. The patient was placed on Ancef/Vanco for infection prophylaxis and Lovenox for DVT prophylaxis. Physical therapy was consulted for discharge planning. The patient will be placed in a rehab unit and it has been ordered. At the time of discharge the patient was afebrile. Incision line noted to be healing well. The patient will be discharged home with Lovenox for DVT prophylaxis and prescribed her continued pain management narcotics for pain control - this includes oxycodone. The patient acknowledges full understanding of plan of treatment and agrees to it. - Time Spent with Patient Total time spent providing and/or coordinating discharge services: Less than 30 minutes - Quality: VTE Deep Vein Thrombosis/Pulmonary Embolism Present on Admission: No Exam Vital signs: Vital Signs 05/21/18 08:00 05/21/18 09:10 05/21/18 10:03 Temperature 98.3 F Pulse Rate 101 H Respiratory Rate 19 18 Blood Pressure 160/73 H Pulse Oximetry 96 97 05/21/18 12:00 05/21/18 15:10 05/21/18 17:25 Temperature 98.4 F 98.3 F Pulse Rate 88 96 H Respiratory Rate 17 18 18 Blood Pressure 148/71 H 158/77 H Pulse Oximetry 94 L 93 L 05/21/18 17:26 05/21/18 20:00 05/22/18 00:00 Temperature 98.8 F 98.1 F Pulse Rate 101 H 100 H Respiratory Rate 18 17 18 Blood Pressure 155/74 H 145/65 H Pulse Oximetry 97 93 L 05/22/18 02:15 05/22/18 04:00 Temperature 98.4 F Pulse Rate 100 H Respiratory Rate 18 18 Blood Pressure 150/69 H Pulse Oximetry 95 Intake & Output 05/21/18 05/22/18 05/22/18 18:59 06:59 18:59 Intake Total 1320 / 1320 Output Total 500 / 500 Balance 1320 / 1320 -500 / -500 Intake: IV 120 / 120 Oral 1200 / 1200 Output: Urine 500 / 500 Other: # Voids 3 3 Date of Last Bowel Movement 05/19/18 05/20/18 Narrative: Dressing dry and intact. Tender to palpation with mild swelling around incision site. Appropriate range of motion expected post operatively. Freely able to move distal digits. No calf pain. Negative Berry's sign. Good cap refill. 2+ pedal pulses. Neurovascular intact. Results Procedures completed during hospitalization: Left Total Knee Arthroplasty 05/19/18, Dr Mauricio - Impressions ITS Impressions Knee X-Ray 05/19/18 00:00 CONCLUSION: Successful total knee replacement. Discharge Plan - Discharge Disposition Patient Disposition: [facility] Inpatient - Discharge Condition Condition: Good - Discharge Order Discharge Orders: Discharge Order (Routine); Ordered 05/22/18 Ordered By: Katlyn Fletcher ([place]) Orthopedic Clear for Discharge (Routine); Ordered 05/22/18 Ordered By: Katlyn Fletcher (Ashley) - Discharge Details Anticipated Discharge Date: 05/22/18 - Physicians Team Primary Care Provider: Jennifer Martins Attending Provider: Joey Mauricio Other Providers: Doyle Ponce DO - Rxs /Orders / Referrals /Forms Prescriptions: New enoxaparin [Lovenox] 40 mg/0.4 mL Syringe 40 mg Sub-Q Q24H RF: 0 metoprolol tartrate 25 mg Tablet 25 mg PO QUICK TECHNICIAN RF: 0 Continue amlodipine [Norvasc] 10 mg Tablet 10 mg PO DAILY aspirin [Aspir-81] 81 mg Tablet,Delayed Release (Dr/Ec) 81 mg PO DAILY biotin 10,000 mcg Tablet,Disintegrating 10,000 mcg PO DAILY carvedilol [Coreg] 12.5 mg Tablet 12.5 mg PO DAILY cephalexin [Keflex] 500 mg Capsule 500 mg PO QID cholecalciferol (vitamin D3) [Vitamin D3] 5,000 unit Tablet 5,000 unit PO DAILY cyclobenzaprine 10 mg Tablet 10 mg PO TID PRN (Reason: Spasms) dicyclomine 20 mg Tablet 20 mg PO TID docusate sodium [Colace] 100 mg Capsule 200 mg PO DAILY esomeprazole magnesium [Nexium] 40 mg Capsule,Delayed Release(Dr/Ec) 40 mg PO DAILY fenofibrate micronized 134 mg Capsule 134 mg PO DAILY lactobacillus combination no.4 [Probiotic] 3 billion cell Capsule 3,000 mmu cells PO DAILY levothyroxine [Synthroid] 112 mcg Tablet 112 mcg PO DAILY lorazepam [Ativan] 1 mg Tablet 1 mg PO BID melatonin 3 mg Tablet 3 mg PO HS morphine (PF) 25 mg/mL Solution 25 mg Intrathecal DIRECTED oxycodone 30 mg Tablet 30 mg PO Q6HR oxycodone [OxyContin] 20 mg Tablet,Oral Only,Ext.Rel.12 Hr 20 mg PO Q12H pravastatin 40 mg Tablet 40 mg PO DAILY trazodone 100 mg Tablet 200 mg PO HS valacyclovir [Valtrex] 500 mg Tablet 500 mg PO BID Ambulatory Orders / Order Sets / DME: Commmary beth 3in (1 each) (Routine) Location: Determined by Patient Ordered By: Katlyn Fletcher ([place]ley) Walker Folding (Routine) Location: Determined by Patient Ordered By: Katlyn Fletcher (Ashley) Referrals: Jennifer Martins DO [Primary Care Provider] - See Instructions Joey Mauricio MD [Physician] - See Instructions - Discharge Instructions Patient Printed Instructions: Knee Replacement (DC)
[2018-05-22] MEDS: Docusate Sodium 100 MG Capsule PO SCH (08:59)
[2018-05-22] MEDS: valACYclovir 500 MG Tab PO SCH (08:59)
[2018-05-22] MEDS: Lactobacillus Acidophilus/L. Spores Tablet PO SCH (08:59)
[2018-05-22] MEDS: Fenofibrate 145 MG Tablet PO SCH (08:59)
[2018-05-22] MEDS: oxyCODONE HCL 20 MG Controlled Release Tablet PO SCH (09:00)
[2018-05-22] MEDS: LORazepam 1 MG Tablet PO SCH (09:01)
[2018-05-22] MEDS: Carvedilol 12.5 MG Tablet PO SCH (09:01)
--- NOTE | 2018-05-22 11:10 | P.PN ---
Subjective Interval history: Patient is seen lying in bed. She is transitioning to oral pain medications - she does have pain however it is tolerable at this time. Denies any chest pain or shortness of breath. No nausea vomiting or diarrhea. She has use the bedside commode but has not ambulated with physical therapy. Physical Exam Vital signs: Vital Signs 05/21/18 12:00 05/21/18 15:10 05/21/18 17:25 Temperature 98.4 F 98.3 F Pulse Rate 88 96 H Respiratory Rate 17 18 18 Blood Pressure 148/71 H 158/77 H Pulse Oximetry 94 L 93 L 05/21/18 17:26 05/21/18 20:00 05/22/18 00:00 Temperature 98.8 F 98.1 F Pulse Rate 101 H 100 H Respiratory Rate 18 17 18 Blood Pressure 155/74 H 145/65 H Pulse Oximetry 97 93 L 05/22/18 02:15 05/22/18 04:00 05/22/18 08:00 Temperature 98.4 F 98.3 F Pulse Rate 100 H 101 H Respiratory Rate 18 18 19 Blood Pressure 150/69 H 153/77 H Pulse Oximetry 95 92 L Intake & Output 05/21/18 05/22/18 05/22/18 18:59 06:59 18:59 Intake Total 1320 / 1320 Output Total 530 / 530 Balance 1320 / 1320 -530 / -530 Intake: IV 120 / 120 Oral 1200 / 1200 Output: Urine 500 / 500 Wound Drainage # 1 Left Knee Other: # Voids 3 3 Date of Last Bowel Movement 05/19/18 05/20/18 Narrative: GENERAL: Well-nourished, well-developed adult female in no obvious distress. 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 SKIN: Warm and dry. HEAD: Atraumatic. Normocephalic. CARDIOVASCULAR: Regular rate and rhythm. RESPIRATORY: No accessory muscle use. Clear to auscultation. Breath sounds equal bilaterally. GASTROINTESTINAL: Abdomen soft, non-tender, non-distended. Positive bowel sounds. MUSCULOSKELETAL: Left knee border gauze dressing over incision. No significant drainage. Generalized swelling. Both extremities well perfused. NEUROLOGICAL: Awake and alert. No obvious cranial nerve deficits. Motor grossly within normal limits. Normal speech. PSYCHIATRIC: Appropriate mood and affect; insight and judgment good. Results - Labs CBC & Chem 7: 05/21/18 03:39 - Procedures Left Total Knee Arthroplasty 05/19/18, Dr Mauricio Assessment and Plan - Plan Patient is a 68-year-old female who was admitted on 05/19/18 for total left knee arthroplasty by Dr. Mauricio. Past medical history includes anxiety, depression, chronic back pain with morphine pump, hepatitis B, hypertension and CAD. Total left knee arthroplasty -Managed by orthopedics Acute pain w/ chronic pain -Stop all IV pain medications to help facilitate transfer to rehab -managed by ortho Nausea; acute -Likely exacerbated by pain/medications. Zofran as needed. Hypertension/CAD -Continue home medications Norvasc and Coreg. BP elevated at time of exam 05/20 ; patient had not yet had blood pressure medications; improved 05/21. Monitor vitals. -Adequate pain control to avoid exacerbating BP Hypothyroid -Continue levothyroxine 112 mcg daily. DVT prophylaxis: Per Ortho -Lovenox Discussed with: Patient and nurse Discharge planning: Per Ortho -patient would like to go to [place]. Case management consulted by orthopedics. Patient is medically cleared for discharge to rehab.
[2018-05-22] MEDS: amLODIPine 10 MG Tablet PO SCH (13:04)
[2018-05-22] MEDS: Enoxaparin Inj 40 MG/0.4 ML Syringe SQ SCH (20:11)
== END 2018-05-22 17:02 ==
LOC: HSDI 05-19 11:35 → N06 05-19 20:38
PROVIDERS: ADMIT Orthopaedic Surgery Sports Medicine; ATTEND Orthopaedic Surgery Sports Medicine